=== PATIENT | female | born 1970 | race Caucasian/White ===

== ENCOUNTER 2018-06-06 14:24 | Inpatient (IN) | payer MEDICARE, SELFPAY ==
[2018-06-06] VITALS (104 sets, daily range): BP systolic 67–138; BP diastolic 39–93; PULSE 44–86; RESP 10–20; TEMP 36.6–37.5; O2SAT 89–100
[2018-06-06] MEDS: Normal Saline 1,000 ML 1000 ML IV ×4 (15:00→16:30)
--- NOTE | 2018-06-06 15:01 | W.ED.GENAD ---
Discharge Plan Disposition Patient Disposition: [facility] INPATIENT Condition: Fair Discharge Details Chief Complaint: Nausea/Vomit/Diar Clinical Impression: Vomiting, Dizziness, Dehydration, Anemia, Vasovagal syncope Reason For Visit: ANEMIA,DIZZINESS,DEHYDRATION,VOMITING,LIVER EDEMA Admit Date/Time: 06/06/18 17:28 Admit Provider: Alvin Haro Attending Provider: Alvin Haro Primary Care Provider: Barber Espinal ED Provider: Nahomy Wang Medical Decision Making 48-year-old female with history of chronic pain syndrome, anxiety depression, seizure status post traumatic subdural hematoma who presents for dizziness, vomiting, b/l rib pain and epigastric pain and syncopal episodes over the past 4 days. Admits to similar episodes occurring 3-4 times yearly over the past few years but not as intense or long in duration as current episode. Review of records note that patient saw her PCP 2 days ago and his note stated that she took all of her tramadol and muscle relaxer and 1 dose. He had started her on clonidine and her attempt to get off tramadol and opiate withdrawal. Patient states she has not yet started the clonidine. Patient states she took 3 tramadol and a muscle relaxer at that time. Heart rate 40s-50s. Blood pressure 71/49 on arrival. The bradycardia and hypotension could be explained by clonidine but patient states she is not taking this. Patient states her medications are Lyrica, Zofran, tramadol, zonisamide, Cymbalta and she denies any other new medicines. Patient appears pale and ashen and fatigued. There are no focal deficits. She is complaining mainly of nausea and dizziness at this time. She has chronic bilateral rib and epigastric pain. Review of records from Dr. Espinal in March 2018 patient had c/o b/l rib pain at that time. We will place an IV, bolus IV fluids, labs, urinalysis, UDS, chest x-ray, CT head, CT abdomen and pelvis, dose of compazine and GI cocktail. 151 --blood pressure briefly and improved to 121/54. Blood pressure now again hypotensive at 67/49. Now 70s/40s. Heart rate remains 40s-60s. Review of PCP notes from the past 2 months note that her heart rate was 80s-100s. Systolic blood pressure usually low 100s-120s. 1530 --labs reviewed and note hemoglobin 7.7. Platelet 416. Creatinine 1.29. GFR 44. Lipase negative. HR 50s, BP 72/46. No relief with compazine, Will give dose zofran. 2 units pRBCs ordered. Hospitalist notified of patient and plan for admission. Hospitalist would like to await CT imaging for disposition if patient needs to go to [facility]. 1550 --BP 70s/40s. Patient states her nausea and dizziness is improved. Color improved. Pulses intact. 1650 --heart rate improved to 68, blood pressure 99/63. PRBC transfusion started and patient complained of some itching. Dose of Benadryl IV given. Pt states she feels better. Nausea and dizziness much improved. 1700 --CT head negative. CT chest/abdomen notes mildly enlarged pretracheal lymph nodes, tiny bilateral hilar lymph nodes, periportal edema, low-density wall thickening of the gallbladder but no gallstones. 1720 --d/w hospitalist - accepts pt for admission. Patient states she takes at least 8-10 tabs of Motrin daily for several years for her chronic pain. Patient does admit to previous history of GI ulcers. Rectal exam noted decreased tone, brown stool, and Hemoccult negative. Will give a dose of Protonix IV. Discussed with hospitalist and he will obtain surgical consult for likely endoscopy. Likely her bradycardia and hypotension due to vasovagal reaction due pain, GI illness, etc. Lab Data Lab results reviewed: Yes I reviewed the patient's lab results. ECG Data Attestation: I personally reviewed and interpreted this ECG (s) as follows: Interpretation: Rate of 57, sinus bradycardia, no acute ST elevation or depression, QTC 440, QRS 84. HPI General Mode of arrival: ambulatory. Date/Time Provider Initiated Documentation: 06/06/18 14:25. Limitations to Documentation: no limitations. Information obtained by: patient. HPI Narrative: Patient is a 48-year-old female with a history of chronic pain syndrome, seizure status post subdural hematoma who presents for vomiting, dizziness, rib pain and syncopal episodes of the past 4 days. Patient states she has been vomiting approximately 2-4 times daily which is been vomitus mixed with blood. States she has vomited approximately 1-2 teaspoons of blood mixed with vomitus daily. Patient states her rib pain is bilateral. Patient states she has felt constant dizziness and black spots in her vision, though is worse upon standing. Patient states she has had a few near syncopal and syncopal episodes upon standing over the past 4 days. Patient states she has similar episodes to all of the symptoms occur 3-4 times yearly, but states this episode is more intense and lasting longer patient denies any headache. She does also admit to epigastric abdominal pain. She denies any diarrhea, recent antibiotics, recent travel, urinary symptoms, vaginal bleeding or known fever. Related Data Home Medications Medication Instructions Recorded Confirmed melatonin-pyridoxine HCl (B6) 1 ea PO HS PRN 05/23/14 06/06/18 zonisamide 300 mg PO DAILY tab-cap 12/24/17 06/06/18 albuterol sulfate HFA 90 2 puff IH Q6H PRN 03/17/18 06/06/18 mcg/actuation aerosol inhaler duloxetine 60 mg capsule,delayed 60 mg PO DAILY 03/17/18 06/06/18 release amitriptyline 25 mg tablet 25 mg PO HS #30 tab 03/23/18 06/06/18 linaclotide 145 mcg capsule 145 mcg PO DAILY #90 cap 03/30/18 06/06/18 ondansetron HCl 4 mg tablet 4 mg PO QID PRN #30 tab 05/05/18 06/06/18 pregabalin 150 mg capsule 150 mg PO TID #90 cap 05/20/18 06/06/18 hljlxnotuz-fxqsqrrxwqjch-hrpgsdbp 1 cap PO Q6H PRN #30 cap 06/04/18 06/06/18 50 mg-325 mg-40 mg capsule tramadol 50 mg tablet 50 mg PO Q4H PRN #168 tab MDD 6 06/04/18 06/06/18 tabs Previous Rx's Medication Instructions Recorded amitriptyline 25 mg tablet 25 mg PO HS #30 tab 03/23/18 linaclotide 145 mcg capsule 145 mcg PO DAILY #90 cap 03/30/18 ondansetron HCl 4 mg tablet 4 mg PO QID PRN #30 tab 05/05/18 pregabalin 150 mg capsule 150 mg PO TID #90 cap 05/20/18 cezxhjsdmc-dwbbejjrjoqhx-xqkmunky 1 cap PO Q6H PRN #30 cap 06/04/18 50 mg-325 mg-40 mg capsule tramadol 50 mg tablet 50 mg PO Q4H PRN #168 tab MDD 6 06/04/18 tabs Allergies Allergy/AdvReac Type Severity Reaction Status Date / Time shellfish derived Allergy Unverified 06/06/18 14:36 baclofen AdvReac Intermediate Nausea Unverified 06/06/18 14:36 General Stated Complaint: Nausea/Vomit/Diar MAYRA: 3 Review of Systems Review of Systems All systems reviewed & are unremarkable except as noted in HPI and below Constitutional Denies chills, Denies excessive sweating, Denies fatigue, Denies fever(s), Reports weakness and Denies weight loss Eyes Reports system reviewed and no additional complaints, except as docu and Denies blurry vision ENT Denies vertigo, Reports dizziness, Denies otalgia, Denies nasal congestion, Denies sore throat and Denies throat swelling Cardiovascular Reports chest pain, Reports syncope, Denies rapid heart rate and Denies dyspnea Respiratory Denies dyspnea Gastrointestinal Reports abdominal pain, Denies diarrhea and Reports vomiting Genitourinary Denies hematuria, Denies dysuria and Denies flank pain Musculoskeletal Denies back pain and Denies joint swelling Integumentary/Breasts Denies lesions and Denies rash Neurologic Denies behavioral changes, Denies confusion, Denies vertigo, Reports dizziness, Reports syncope and Reports weakness Psychiatric Denies behavioral changes, Denies confusion and Denies depression Endocrine Denies excessive sweating and Denies fatigue Hematologic/Lymphatic Denies easy bruising and Denies lymphadenopathy Allergic/Immunologic Denies throat swelling PFSH Acne vulgaris Anxiety Cervical disc disorder with myelopathy Chronic pain Constipation Depression Headache Overactive bladder Panic attacks Peripheral neuralgia Seizure Subdural hematoma, post-traumatic Medical History Acne vulgaris Anxiety Cervical disc disorder with myelopathy Chronic pain Constipation Depression Headache Overactive bladder Panic attacks Peripheral neuralgia Seizure Subdural hematoma, post-traumatic Social History Smoking/Tobacco Use Status: Never alcohol intake: never substance use type: does not use and former substance user Date of last use: PREVIOUS HISTORY OF BENZODIAZEPIEN DEPENDANCE.CHRONIC PAIN Social History Smoking/Tobacco Use Status: Never alcohol intake: never substance use type: does not use and former substance user Date of last use: PREVIOUS HISTORY OF BENZODIAZEPIEN DEPENDANCE.CHRONIC PAIN Exam Const General: cooperative and ill appearing Orientation: other (drowsy) [facility] Head: normal to inspection Ears: hearing grossly normal bilaterally, external ears normal and TM's normal bilaterally General nose exam: external nose normal Face and sinus: normal facial exam Mouth: oral mucosae normal Teeth and gingiva: dentition normal Throat: posterior oropharynx normal Eyes General: appearance normal, both eyes and all related structures Eyelids: eyelids normal Pupils: PERRL EOM: EOM intact bilaterally Neck Neck: normal visual inspection Lymphatic: no lymphadenopathy noted Chest Chest: normal inspection of the chest and tenderness (b/l anterior chest wall ) Resp Effort & Inspection: normal respiratory effort and able to speak in complete sentences Auscultation: clear to auscultation bilaterally Cardio Rate: bradycardic Rhythm: regular rhythm GI Inspection: normal to inspection Palpation: soft, not firm, no guarding, no hepatosplenomegaly, no masses and tender in the epigastrum Auscultation: normal bowel sounds Skin General skin exam: other (ashen skin color) Neuro General: alert, awake and oriented x3 Cranial Nerves: CN's II-XI intact bilaterally Cognition: normal cognition Speech: speech normal Gait: normal gait Motor: muscle tone normal throughout and strength 5/5 throughout Sensory Exam: no sensory deficits noted Extrem General: normal to inspection, full ROM and normal capillary refill Psych Appearance: grossly normal Mental Status: mental status grossly normal Speech and Movement: speech and movement normal Affect: other (flat affect) Thought Process: normal Course Laboratory Tests Range/Units 06/06/18 06/06/18 06/06/18 15:10 15:10 15:10 WBC (4.4-10.8) k/cumm 9.70 RBC (4.00-5.20) m/cumm 3.26 L Hgb (12.0-15.5) g/dL 7.7 L Hct (36.0-46.0) % 24.7 L MCV (80-95) fL 75.8 L MCH (27.0-33.0) pg 23.6 L MCHC (32.0-36.0) g/dL 31.2 L RDW (11.7-14.6) % 17.5 H Plt Count (130-400) x1000/uL 416 H MPV (8.0-11.0) fL 10.5 Immature Gran % 0.1 Neutrophils % 73.7 Lymphocytes % 17.8 Monocytes % 6.7 Eosinophils % 1.4 Basophils % 0.3 Absolute Neutrophils (1.2-6.7) k/cumm 7.14 H Absolute Lymphocytes (1.2-3.4) k/cumm 1.73 Absolute Monocytes (0.11-0.7) k/cumm 0.65 Absolute Eosinophils (0.0-0.7) k/cumm 0.14 Absolute Basophils (0.0-0.2) k/cumm 0.03 Retic Count (0.5-2.4) % PT (9.3-10.8) sec INR (1.0-3.5) APTT (21.0-31.4) sec Sodium (136-145) mmol/L 139 Potassium (3.5-5.1) mmol/L 3.5 Chloride (98-107) mmol/L 104 Carbon Dioxide (21.0-32.0) mmol/L 23.7 Anion Gap (3-11) mmol/L 11.3 H BUN (7-18) mg/dL 20 H Creatinine (0.55-1.02) mg/dL 1.29 H Estimated GFR/1.73 m2 (mL/min/1.73m2) 44.11 Glucose (70-100) mg/dL 116 H Calcium (8.5-10.1) mg/dL 8.3 L Magnesium (1.8-2.4) mg/dL 1.7 L Iron (50-175) ug/dL TIBC (250-450) ug/dL Transferrin % Sat (15-50) % Ferritin (8-388) ng/mL Total Bilirubin (0.2-1.0) mg/dL 0.1 L AST (15-37) U/L 10 L ALT (12-78) U/L 13 Alkaline Phosphatase (46-116) U/L 61 Troponin I (0.00-0.06) ng/mL < 0.02 Total Protein (6.4-8.2) g/dL 6.5 Albumin (3.4-5.0) g/dL 2.8 L Lipase (73-393) U/L 128 Serum HCG, Qual Urine Opiates Screen (Negative) Urine Methadone Screen (Negative) Ur Barbiturates Screen (Negative) Ur Tricyclics Screen (Negative) Ur Amphetamines Screen (Negative) U Benzodiazepines Scrn (Negative) Urine Cocaine Screen (Negative) Ur THC Screen (Negative) Patient ABO/Rh O Positive Antibody Screen Negative Crossmatch See Detail Range/Units 06/06/18 06/06/18 06/06/18 15:10 15:10 15:10 WBC (4.4-10.8) k/cumm RBC (4.00-5.20) m/cumm Hgb (12.0-15.5) g/dL Hct (36.0-46.0) % MCV (80-95) fL MCH (27.0-33.0) pg MCHC (32.0-36.0) g/dL RDW (11.7-14.6) % Plt Count (130-400) x1000/uL MPV (8.0-11.0) fL Immature Gran % Neutrophils % Lymphocytes % Monocytes % Eosinophils % Basophils % Absolute Neutrophils (1.2-6.7) k/cumm Absolute Lymphocytes (1.2-3.4) k/cumm Absolute Monocytes (0.11-0.7) k/cumm Absolute Eosinophils (0.0-0.7) k/cumm Absolute Basophils (0.0-0.2) k/cumm Retic Count (0.5-2.4) % PT (9.3-10.8) sec 9.7 INR (1.0-3.5) 1.0 APTT (21.0-31.4) sec 22.2 Sodium (136-145) mmol/L Potassium (3.5-5.1) mmol/L Chloride (98-107) mmol/L Carbon Dioxide (21.0-32.0) mmol/L Anion Gap (3-11) mmol/L BUN (7-18) mg/dL Creatinine (0.55-1.02) mg/dL Estimated GFR/1.73 m2 (mL/min/1.73m2) Glucose (70-100) mg/dL Calcium (8.5-10.1) mg/dL Magnesium (1.8-2.4) mg/dL Iron (50-175) ug/dL 14 L TIBC (250-450) ug/dL 398 Transferrin % Sat (15-50) % 4 L Ferritin (8-388) ng/mL Total Bilirubin (0.2-1.0) mg/dL AST (15-37) U/L ALT (12-78) U/L Alkaline Phosphatase (46-116) U/L Troponin I (0.00-0.06) ng/mL Total Protein (6.4-8.2) g/dL Albumin (3.4-5.0) g/dL Lipase (73-393) U/L Serum HCG, Qual Negative Urine Opiates Screen (Negative) Urine Methadone Screen (Negative) Ur Barbiturates Screen (Negative) Ur Tricyclics Screen (Negative) Ur Amphetamines Screen (Negative) U Benzodiazepines Scrn (Negative) Urine Cocaine Screen (Negative) Ur THC Screen (Negative) Patient ABO/Rh Antibody Screen Crossmatch Range/Units 06/06/18 06/06/18 06/06/18 15:10 15:10 17:50 WBC (4.4-10.8) k/cumm RBC (4.00-5.20) m/cumm Hgb (12.0-15.5) g/dL Hct (36.0-46.0) % MCV (80-95) fL MCH (27.0-33.0) pg MCHC (32.0-36.0) g/dL RDW (11.7-14.6) % Plt Count (130-400) x1000/uL MPV (8.0-11.0) fL Immature Gran % Neutrophils % Lymphocytes % Monocytes % Eosinophils % Basophils % Absolute Neutrophils (1.2-6.7) k/cumm Absolute Lymphocytes (1.2-3.4) k/cumm Absolute Monocytes (0.11-0.7) k/cumm Absolute Eosinophils (0.0-0.7) k/cumm Absolute Basophils (0.0-0.2) k/cumm Retic Count (0.5-2.4) % 1.7 PT (9.3-10.8) sec INR (1.0-3.5) APTT (21.0-31.4) sec Sodium (136-145) mmol/L Potassium (3.5-5.1) mmol/L Chloride (98-107) mmol/L Carbon Dioxide (21.0-32.0) mmol/L Anion Gap (3-11) mmol/L BUN (7-18) mg/dL Creatinine (0.55-1.02) mg/dL Estimated GFR/1.73 m2 (mL/min/1.73m2) Glucose (70-100) mg/dL Calcium (8.5-10.1) mg/dL Magnesium (1.8-2.4) mg/dL Iron (50-175) ug/dL TIBC (250-450) ug/dL Transferrin % Sat (15-50) % Ferritin (8-388) ng/mL 5 L Total Bilirubin (0.2-1.0) mg/dL AST (15-37) U/L ALT (12-78) U/L Alkaline Phosphatase (46-116) U/L Troponin I (0.00-0.06) ng/mL Total Protein (6.4-8.2) g/dL Albumin (3.4-5.0) g/dL Lipase (73-393) U/L Serum HCG, Qual Urine Opiates Screen (Negative) Positive Urine Methadone Screen (Negative) Negative Ur Barbiturates Screen (Negative) Positive Ur Tricyclics Screen (Negative) Negative Ur Amphetamines Screen (Negative) Negative U Benzodiazepines Scrn (Negative) Negative Urine Cocaine Screen (Negative) Negative Ur THC Screen (Negative) Negative Patient ABO/Rh Antibody Screen Crossmatch Range/Units 06/06/18 17:56 WBC (4.4-10.8) k/cumm RBC (4.00-5.20) m/cumm Hgb (12.0-15.5) g/dL Hct (36.0-46.0) % MCV (80-95) fL MCH (27.0-33.0) pg MCHC (32.0-36.0) g/dL RDW (11.7-14.6) % Plt Count (130-400) x1000/uL MPV (8.0-11.0) fL Immature Gran % Neutrophils % Lymphocytes % Monocytes % Eosinophils % Basophils % Absolute Neutrophils (1.2-6.7) k/cumm Absolute Lymphocytes (1.2-3.4) k/cumm Absolute Monocytes (0.11-0.7) k/cumm Absolute Eosinophils (0.0-0.7) k/cumm Absolute Basophils (0.0-0.2) k/cumm Retic Count (0.5-2.4) % PT (9.3-10.8) sec Cancelled INR (1.0-3.5) Cancelled APTT (21.0-31.4) sec Sodium (136-145) mmol/L Potassium (3.5-5.1) mmol/L Chloride (98-107) mmol/L Carbon Dioxide (21.0-32.0) mmol/L Anion Gap (3-11) mmol/L BUN (7-18) mg/dL Creatinine (0.55-1.02) mg/dL Estimated GFR/1.73 m2 (mL/min/1.73m2) Glucose (70-100) mg/dL Calcium (8.5-10.1) mg/dL Magnesium (1.8-2.4) mg/dL Iron (50-175) ug/dL TIBC (250-450) ug/dL Transferrin % Sat (15-50) % Ferritin (8-388) ng/mL Total Bilirubin (0.2-1.0) mg/dL AST (15-37) U/L ALT (12-78) U/L Alkaline Phosphatase (46-116) U/L Troponin I (0.00-0.06) ng/mL Total Protein (6.4-8.2) g/dL Albumin (3.4-5.0) g/dL Lipase (73-393) U/L Serum HCG, Qual Urine Opiates Screen (Negative) Urine Methadone Screen (Negative) Ur Barbiturates Screen (Negative) Ur Tricyclics Screen (Negative) Ur Amphetamines Screen (Negative) U Benzodiazepines Scrn (Negative) Urine Cocaine Screen (Negative) Ur THC Screen (Negative) Patient ABO/Rh Antibody Screen Crossmatch Vital Signs Temperature 97.9 F 06/06/18 14:31 Pulse 49 L 06/06/18 14:31 Respiratory Rate 16 06/06/18 14:31 Blood Pressure 71/46 L 06/06/18 14:31 Pulse Oximetry 100 06/06/18 14:31 Temperature 97.9 F 06/06/18 14:31 Temperature Source Skin 06/06/18 14:31 Pulse 49 L 06/06/18 14:31 Respiratory Rate 16 06/06/18 14:31 Blood Pressure 71/46 L 06/06/18 14:31 Pulse Oximetry 100 06/06/18 14:31 Pain Level 8 06/06/18 14:31
[2018-06-06] MEDS: Prochlorperazine 10 MG/2 ML VIAL IVP (15:06)
[2018-06-06 15:24] LABS: Abs Immature Grans 0.01 k/cumm (0.0-0.09); Absolute Basophil Count 0.03 k/cumm (0.0-0.2); Absolute Eosinophil Count 0.14 k/cumm (0.0-0.7); Absolute Lymphocyte Count 1.73 k/cumm (1.2-3.4); Absolute Monocyte Count 0.65 k/cumm (0.11-0.7); Absolute Neutrophil Count 7.14 k/cumm (1.2-6.7); Basophils % 0.3; Eosinophils % 1.4; HCT 24.7 % (36.0-46.0); HGB 7.7 g/dL (12.0-15.5); Immature Grans % 0.1; Lymphocytes % 17.8; Mean Corp. HGB Concentration 31.2 g/dL (32.0-36.0); Mean Corpuscular Hemoglobin 23.6 pg (27.0-33.0); Mean Corpuscular Volume 75.8 fL (80-95); Mean Platelet Volume 10.5 fL (8.0-11.0); Monocytes % 6.7; Neutrophils % 73.7; Platelet Count 416 x1000/uL (130-400); RBC 3.26 m/cumm (4.00-5.20); RBC Distribution Width 17.5 % (11.7-14.6)
--- NOTE | 2018-06-06 15:33 | DI.RAD_ITS ---
SYMPTOMS/DIAGNOSIS: RIB PAIN, ? ACUTE DISEASE PORTABLE AP CHEST: Comparison 03/12/13. The heart is normal in size. The lungs are clear. The mediastinal structures and pleura appear intact. CONCLUSION: Normal chest.
--- NOTE | 2018-06-06 15:34 | DI.CT_ITS ---
SYMPTOMS/DIAGNOSIS: HEADACHE, ? ACUTE DISEASE/CVA, RIB AND EPIGASTRIC PAIN, ? ACUTE DISEASE CRANIAL CT (WITHOUT CONTRAST): A noncontrast cranial CT was performed. Comparison 05/30/17. The ventricular system is normal in appearance. There is no evidence of an intracranial mass lesion. There is no evidence of a subdural or epidural hematoma. No focal areas of decreased attenuation are seen. IMPRESSION: Normal noncontrast Cranial CT. CT SCAN OF THE ABDOMEN AND PELVIS: There is diffuse heterogeneous decreased signal in the liver, particularly around the gallbladder fossa. No discrete mass is appreciated. There is diffuse periportal edema. The portal and superior mesenteric veins are patent. The gallbladder shows gallbladder wall thickening and pericholecystic fluid. No biliary ductal dilatation is present. The pancreas, spleen, adrenal glands, kidneys, ureters and bladder are unremarkable. The reproductive organs are grossly unremarkable. There is diverticulosis seen in the colon but no evidence of acute diverticulitis. No evidence of bowel inflammatory or obstruction. The appendix is grossly unremarkable. The abdominal aorta is of normal caliber. No aneurysmal dilatation is seen. No significant abdominal or pelvic adenopathy or pneumoperitoneum is seen. There is a trace amount of fluid in the cul-de-sac which is likely physiologic. The bones are intact. Note is made of a 1.4 cm left adnexal cyst likely ovarian in origin. IMPRESSION: 1. Periportal hepatic edema. 2. Decreased attenuation in the gallbladder wall with gallbladder wall thickening and pericholecystic fluid. No cholelithiasis is seen. Sonographic correlation is recommended. This may represent cholecystitis, however, disease from the adjacent liver can not be excluded. 3. Colonic diverticulosis but no evidence of acute diverticulitis. CT SCAN OF THE CHEST: The thoracic aorta is of normal caliber. The heart size is within normal limits. No significant pericardial effusion is seen. No pleural effusion or pneumothorax is identified. There are mildly enlarged lymph nodes in the mediastinum. The thyroid is mildly enlarged and heterogeneous with what appear to be small discrete nodules. Thyroid ultrasound is recommended. Dependent atelectatic changes are seen in the lungs which are otherwise clear. The tracheobronchial tree is unremarkable. The bones are intact. IMPRESSION: Mildly enlarged mediastinal lymph nodes. These are nonspecific.
[2018-06-06 15:36] LABS: ALT 13 U/L (12-78); AST 10 U/L (15-37); Albumin 2.8 g/dL (3.4-5.0); Alkaline Phosphatase 61 U/L (46-116); Anion Gap 11.3 mmol/L (3-11); BUN 20 mg/dL (7-18); Bilirubin, Total 0.1 mg/dL (0.2-1.0); CO2 23.7 mmol/L (21.0-32.0); CREATININE 1.29 mg/dL (0.55-1.02); Calcium 8.3 mg/dL (8.5-10.1); Chloride 104 mmol/L (98-107); Estimated GFR 44.11 (mL/min/1.73m2); Glucose 116 mg/dL (70-100); Lipase 128 U/L (73-393); Magnesium 1.7 mg/dL (1.8-2.4); Potassium 3.5 mmol/L (3.5-5.1); Sodium 139 mmol/L (136-145); Total Protein 6.5 g/dL (6.4-8.2); Troponin I < 0.02 ng/mL (0.00-0.06)
[2018-06-06] MEDS: Ondansetron 4 MG/2 ML VIAL IVP (15:37)
--- NOTE | 2018-06-06 16:04 | NUR.NOTE ---
Third L IVF infusing as ordered, pt. remains alert, remains hypotensive and bradycardic. Radial and DP pulses are palpable b/laterally, skin is warm and dry. states nausea is improved after ondansetron.
--- NOTE | 2018-06-06 16:06 | DI.VRAD_ITS ---
EXAM: XR Chest, 1 View EXAM DATE/TIME: 06/06/2018 3:42 PM CLINICAL HISTORY: 48 years old, female; Pain; Chest wall pain; Patient HX: Rib pain TECHNIQUE: XR of the chest, 1 view. COMPARISON: CR PORTABLE CHEST ONE VIEW 03/12/2013 8:01 PM FINDINGS: The cardiomediastinal silhouette and pulmonary vasculature are within normal limits. The lungs are clear. No pleural effusion or pneumothorax is identified. IMPRESSION: No acute process. Dictated and Authenticated by: Ron Jaramillo MD. Ordering:KEESHA TORRES MD
[2018-06-06 16:36] LABS: HCG Qual (Serum) Negative
[2018-06-06] MEDS: Omnipaque 350 MG/ML 100 ML BTL IJ (16:36)
--- NOTE | 2018-06-06 16:43 | DI.VRAD_ITS ---
EXAM: CT Head Without Intravenous Contrast EXAM DATE/TIME: 06/06/2018 3:34 PM CLINICAL HISTORY: 48 years old, female; Pain; Headache; Headache not specified; Patient HX: Rule out acute disease TECHNIQUE: Axial computed tomography images of the head/brain without intravenous contrast. All CT scans at this facility use at least one of these dose optimization techniques: automated exposure control; mA and/or kV adjustment per patient size (includes targeted exams where dose is matched to clinical indication); or iterative reconstruction. Coronal and sagittal reformatted images were created and reviewed. COMPARISON: CT HEAD WITHOUT CONTRAST 05/30/2017 1:57 PM FINDINGS: Brain: Unremarkable. No hemorrhage. No significant white matter disease. No edema. Ventricles: Unremarkable. No ventriculomegaly. Bones/joints: Unremarkable. No acute fracture. Sinuses: Normal as visualized. No acute sinusitis. Mastoid air cells: Normal as visualized. No mastoid effusion. Soft tissues: Unremarkable. IMPRESSION: No acute intracranial abnormality. Dictated and Authenticated by: Ron Jaramillo MD. Ordering:KEESHA TORRES MD
[2018-06-06] MEDS: MORPHine 10 MG/ML VIAL 2 MG IV (16:54)
--- NOTE | 2018-06-06 16:55 | DI.VRAD_ITS ---
EXAM: CT Chest With Contrast EXAM DATE/TIME: 06/06/2018 3:50 PM CLINICAL HISTORY: 48 years old, female; Pain; Other: Epigastric; Other: Rib TECHNIQUE: Axial computed tomography images of the chest with intravenous contrast. All CT scans at this facility use at least one of these dose optimization techniques: automated exposure control; mA and/or kV adjustment per patient size (includes targeted exams where dose is matched to clinical indication); or iterative reconstruction. Coronal and sagittal reformatted images were created and reviewed. CONTRAST: 90 ml of Omnipaque 350 administered intravenously. COMPARISON: SC XR PORTABLE CHEST AP 06/06/2018 3:39 PM FINDINGS: Lungs: Minimal dependent changes within the lung bases. No pulmonary consolidation. Pleural space: Normal. No pneumothorax. No pleural effusion. Heart: Normal. No cardiomegaly. No pericardial effusion. Aorta: Normal. No aortic aneurysm. Lymph nodes: Mildly enlarged pretracheal lymph nodes measuring up to 10 mm in short axis diameter. Tiny bilateral hilar lymph nodes. Bones/joints: Unremarkable. No acute fracture. Soft tissues: Unremarkable. IMPRESSION: Mild mediastinal lymphadenopathy, nonspecific. EXAM: CT Abdomen and Pelvis With Intravenous Contrast EXAM DATE/TIME: 06/06/2018 3:50 PM CLINICAL HISTORY: 48 years old, female; Pain; Other: Epigastric; Other: Rib TECHNIQUE: Axial computed tomography images of the abdomen and pelvis with intravenous contrast. All CT scans at this facility use at least one of these dose optimization techniques: automated exposure control; mA and/or kV adjustment per patient size (includes targeted exams where dose is matched to clinical indication); or iterative reconstruction. Coronal and sagittal reformatted images were created and reviewed. CONTRAST: 90 ml of Omnipaque 350 administered intravenously. COMPARISON: SC XR PORTABLE CHEST AP 06/06/2018 3:39 PM FINDINGS: Lower thorax: No acute findings. ABDOMEN: Liver: Diffuse periportal edema. Decreased attenuation within the liver adjacent to the gallbladder fossa, likely focal fatty infiltration. Gallbladder and bile ducts: Low-density wall thickening of the gallbladder. No calcified gallstones. No duct dilatation. Pancreas: Unremarkable. No ductal dilation. Spleen: Unremarkable. No splenomegaly. Adrenals: Normal. No mass. Kidneys and ureters: Unremarkable. No stones. No hydronephrosis. Stomach and bowel: Mild colonic diverticulosis. No diverticulitis. No colitis or obstruction. Appendix: No evidence of appendicitis. PELVIS: Bladder: Unremarkable as visualized. Reproductive: Left ovarian cyst measuring 14 mm. unremarkable right adnexa and uterus. ABDOMEN and PELVIS: Intraperitoneal space: Trace fluid within the posterior cul-de-sac. No free air. Bones/joints: No acute fracture. Soft tissues: Unremarkable. Vasculature: Unremarkable. No abdominal aortic aneurysm. Lymph nodes: Unremarkable. No enlarged lymph nodes. IMPRESSION: 1. Periportal edema. 2. Low-density wall thickening of the gallbladder. These changes may be secondary to primary gallbladder disease as well as associated with hepatic disease. No calcified stones are identified. Consider right upper quadrant ultrasound as clinically indicated. 3. Colonic diverticulosis. 4. Small left ovarian cyst. Trace fluid in the posterior cul-de-sac. Dictated and Authenticated by: Ron Jaramillo MD. Ordering:KEESHA TORRES MD
[2018-06-06] MEDS: diphenhydrAMINE 50 MG/ML VIAL 25 MG IVP ×2 (17:03→20:17)
--- NOTE | 2018-06-06 17:04 | NUR.NOTE ---
This RN at the bedside for first 20 minutes of transfusion, started at 30ml/hour. Pt. did endorse mild itchiness to left arm, benadryl administered as ordered. s/s improved. rate increased to 240ml/hour. Pt. aware of s/s of reaction to communicated with staff.
--- NOTE | 2018-06-06 17:06 | NUR.NOTE ---
MD Wang at the bedside assessing patient.
[2018-06-06 17:27] LABS: PTT Activated 22.2 sec (21.0-31.4); Prothrombin Time 9.7 sec (9.3-10.8)
[2018-06-06] MEDS: Pantoprazole 40 MG VIAL IVP ×2 (17:59→22:51)
[2018-06-06 18:01] LABS: Reticulocyte 1.7 % (0.5-2.4)
[2018-06-06 18:09] LABS: *AMPHETAMINES SCREEN URINE Negative (Negative); *BARBITURATES SCREEN URINE POSITIVE (Negative); *BENZODIAZEPINES SCREEN URINE Negative (Negative); Cannabinoids THC Negative (Negative); Cocaine Screen,Urine Negative (Negative); METHADONE URINE SCREEN Negative (Negative); OPIATES URINE SCREEN POSITIVE (Negative)
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
[2018-06-06 18:14] LABS: Tricyclic Antidepressants Negative (Negative)
[2018-06-06 18:17] LABS: Iron 14 ug/dL (50-175); Total Iron Binding Capacity 398 ug/dL (250-450); Transferrin Sat 4 % (15-50)
--- NOTE | 2018-06-06 18:17 | NUR.NOTE ---
Report given to KAMILLE Riggs in ICU. Pt. stood to void in commode, stood, steady, in no distress. Does persist to leyla down to low 40s, mostly is in low 60s.
[2018-06-06 18:33] LABS: Ferritin 5 ng/mL (8-388)
--- NOTE | 2018-06-06 19:06 | NUR.NOTE ---
Blood Transusion completed at 1820, pt. tolerated well. Report given to KAMILLE Riggs in the ICU. Pt. transported on monitor by this RN.
[2018-06-06] MEDS: Ondansetron 4 MG TAB PO ×2 (19:18→23:20)
[2018-06-06] MEDS: Pregabalin 50 MG CAP 150 MG PO (20:18)
[2018-06-06] MEDS: Normal Saline Flush 10 ML SYR IVP (20:18)
[2018-06-06 20:43] LABS: Troponin I < 0.02 ng/mL (0.00-0.06)
[2018-06-06] MEDS: Normal Saline 1,000 ML 150 ML IV (21:42)
[2018-06-07] VITALS (66 sets, daily range): BP systolic 84–154; BP diastolic 56–80; PULSE 63–106; RESP 12–24; TEMP 36–37.7; O2SAT 96–100
[2018-06-07 00:50] LABS: Troponin I < 0.02 ng/mL (0.00-0.06)
[2018-06-07] MEDS: Ondansetron 4 MG TAB PO ×4 (03:35→19:11)
[2018-06-07] MEDS: Normal Saline Flush 10 ML SYR IVP ×4 (03:35→12:42)
[2018-06-07 04:19] LABS: HCT 30.3 % (36.0-46.0); Mean Corpuscular Hemoglobin 25.4 pg (27.0-33.0); Mean Corpuscular Volume 77.1 fL (80-95); Mean Platelet Volume 10.9 fL (8.0-11.0); Platelet Count 374 x1000/uL (130-400); RBC 3.93 m/cumm (4.00-5.20); RBC Distribution Width 17.7 % (11.7-14.6); White Blood Cell Count 9.31 k/cumm (4.4-10.8)
[2018-06-07 04:34] LABS: ALT 42 U/L (12-78); AST 40 U/L (15-37); Albumin 2.7 g/dL (3.4-5.0); Alkaline Phosphatase 122 U/L (46-116); Anion Gap 13.3 mmol/L (3-11); BUN 13 mg/dL (7-18); Bilirubin, Total 0.2 mg/dL (0.2-1.0); CO2 19.7 mmol/L (21.0-32.0); CREATININE 0.97 mg/dL (0.55-1.02); Calcium 7.5 mg/dL (8.5-10.1); Chloride 110 mmol/L (98-107); Glucose 86 mg/dL (70-100); Magnesium 1.6 mg/dL (1.8-2.4); Potassium 3.1 mmol/L (3.5-5.1); Sodium 143 mmol/L (136-145); Total Protein 6.2 g/dL (6.4-8.2)
[2018-06-07] MEDS: Normal Saline 1,000 ML 150 ML IV (04:36)
[2018-06-07 04:40] LABS: Troponin I < 0.02 ng/mL (0.00-0.06)
[2018-06-07] MEDS: MAGNESIUM SULFATE 1 GM/100 ML BAG IVPB (06:20)
--- NOTE | 2018-06-07 07:00 | DI.US_ITS ---
SYMPTOM/DIAGNOSIS: PERIPORTAL EDEMA, NAUSEA, VOMITING, EPIGASTRIC PAIN LIMITED ABDOMEN ULTRASOUND: The liver is normal in size. No hepatic mass is seen. Portal venous flow is normal. There is a trace amount of fluid seen adjacent to the liver and gallbladder. No gallstones are present. Gallbladder wall is of normal thickness. No sludge is seen. The common duct in the mid portion is .8 cm. Distally in the head of the pancreas the common duct is within normal limits at .4 cm. No intraductal stone is seen. IMPRESSION: 1, Small amount of perihepatic and pericholecystic fluid, otherwise no evidence of cholelithiasis or choledocholithiasis sonographically.
[2018-06-07] MEDS: POTASSIUM CHLORIDE 10 MEQ/100 ML BAG 100 MEQ IVPB (07:34)
--- NOTE | 2018-06-07 07:38 | PDOC.CMIN ---
- If Service Date Differs Date of service: 06/07/18 Time of Service: 07:38 Care Management Initial Assess REASON FOR HOSPITALIZATION:: Anemia, dizziness, dehydration, vomiting, liver edema. PAST MEDICAL HISTORY/PAST SURGICAL HISTORY:: Acne vulgaris, anxiety, cervical disc disorder with myelopathy, depression, overactive bladder, peripheral neuralgia, panic attacks, seizures, subdural hematoma, post-traumatic. PREVIOUS FUNCTIONAL STATUS/SOCIAL/FAMILY SUPPORTS:: Symone resides in [place] with her partner, Aaron. She has several adult children and step children and has two foster children. 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 Symone is independent with her ADLs and transportation and reports that she has no reservations about returning home when medically ready. CURRENT FUNCTIONAL STATUS:: Symone is sitting in bed when CM visits this afternoon. This morning when CM stopped in, Symone was in 'uncontrollable pain' which she reports is much improved since then. Symone had an abdominal ultrasound this morning and has had a consult with Dr. Cortes regarding a possible endoscopy. Symone has an appointment with Dr. Carvalho on 06/08 which she will need to reschedule if she remains inpatient. Her H&H is improved though remains low following two infusions; 10.0 and 30.3. Symone reports that she is feeling much better than she did this morning when CM first visited. She reports that she is 'bummed' that she is not home with her foster children. ADVANCE DIRECTIVES:: None on file at [facility]. They are on file at [facility]. Per patient request, CM will request a copy be faxed to [facility]. Has patient been provided with information about the portal?: Yes Did the patient sign up for the portal?: No CODE STATUS:: Full Code INSURANCE COVERAGE / FINANCIAL ISSUES:: Medicare. CURRENT HOME/COMMUNITY SERVICES/EQUIPMENT:: No current home or community services. No equipment. PRIMARY CARE PHYSICIAN:: Barber Espinal MD. POTENTIAL DISCHARGE NEEDS:: Follow up appointment with her PCP. PATIENT/FAMILY EDUCATION NEEDS:: Discharge education, any limitations, and follow up plan of care. Ask Me Three discussion. ANTICIPATED BARRIERS TO DISCHARGE:: No anticipated barriers to discharge. TRANSPORTATION:: Symone will transport via private vehicle with her , Aaron. PLAN:: Symone will discharge home when medically ready per MD. Anticipate patient will discharge with no services and follow up with her PCP. CM will continue to offer support to patient and care team regarding discharge planning and disposition.
--- NOTE | 2018-06-07 07:48 | INITIAL_ITS ---
- If Service Date Differs Date of service: 06/07/18 Time of Service: 07:38 Care Management Initial Assess REASON FOR HOSPITALIZATION:: Anemia, dizziness, dehydration, vomiting, liver edema. PAST MEDICAL HISTORY/PAST SURGICAL HISTORY:: Acne vulgaris, anxiety, cervical disc disorder with myelopathy, depression, overactive bladder, peripheral neuralgia, panic attacks, seizures, subdural hematoma, post-traumatic. PREVIOUS FUNCTIONAL STATUS/SOCIAL/FAMILY SUPPORTS:: Symone resides in [place] with her partner, Aaron. She has several adult children and step children and has two foster children. 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 Symone is independent with her ADLs and transportation and reports that she has no reservations about returning home when medically ready. CURRENT FUNCTIONAL STATUS:: Symone is sitting in bed when CM visits this afternoon. This morning when CM stopped in, Symone was in 'uncontrollable pain' which she reports is much improved since then. Symone had an abdominal ultrasound this morning and has had a consult with Dr. Cortes regarding a possible endoscopy. Symone has an appointment with Dr. Carvalho on 06/08 which she will need to reschedule if she remains inpatient. Her H&H is improved though remains low following two infusions; 10.0 and 30.3. Symone reports that she is feeling much better than she did this morning when CM first visited. She reports that she is 'bummed' that she is not home with her foster children. ADVANCE DIRECTIVES:: None on file at [facility]. They are on file at [facility]. Per patient request, CM will request a copy be faxed to [facility]. Has patient been provided with information about the portal?: Yes Did the patient sign up for the portal?: No CODE STATUS:: Full Code INSURANCE COVERAGE / FINANCIAL ISSUES:: Medicare. CURRENT HOME/COMMUNITY SERVICES/EQUIPMENT:: No current home or community services. No equipment. PRIMARY CARE PHYSICIAN:: Barber Espinal MD. POTENTIAL DISCHARGE NEEDS:: Follow up appointment with her PCP. PATIENT/FAMILY EDUCATION NEEDS:: Discharge education, any limitations, and follow up plan of care. Ask Me Three discussion. ANTICIPATED BARRIERS TO DISCHARGE:: No anticipated barriers to discharge. TRANSPORTATION:: Symone will transport via private vehicle with her , Aaron. PLAN:: Symone will discharge home when medically ready per MD. Anticipate patient will discharge with no services and follow up with her PCP. CM will continue to offer support to patient and care team regarding discharge planning and disposition.
[2018-06-07] MEDS: Pregabalin 50 MG CAP 150 MG PO ×3 (08:55→19:07)
[2018-06-07] MEDS: Zonisamide 100 MG CAP 300 MG PO (08:55)
[2018-06-07] MEDS: DULoxetine 30 MG CAP 60 MG PO (08:55)
[2018-06-07] MEDS: traMADol 50 MG TAB PO ×3 (08:58→19:48)
--- NOTE | 2018-06-07 09:00 | RESPIRATORY ---
Patient denies SOB, breath sounds clear with a few scattered crackles LLL.
[2018-06-07] MEDS: Acetaminophen 325 MG TAB PO (09:07)
--- NOTE | 2018-06-07 09:14 | PHARADMIT ---
Addendum entered by Justen Salas III 06/08/18 12:20: Pharmacy Note Subjective GI Bleed resolved (ADR from Ibuprofen over use, Advil 10-15/day). Nausea & Vomiting resolved. Had psych consult. Objective VS-OK Pain: 01/12, H&H-10.8/33.7 (post transfusion), Wgt-57.2kg No BM yet. Assessment No med changes Plan Changed to Med/Surg overflow, Plan for discharge tomorrow. Original Note: Admission Pharmacy Clinical Review anemia, dizziness, dehydration, vomiting, liver edema Code Status Full Code Current Weight 56.3 kg Renally Cleared and Narrow Therapeutic Index Meds Crcl ~56.00 mL/min current meds okay QTc Value / Action Taken QTc 440 BP Control, Fever BP 130/75 Tmax 37.7 Electrolytes reviewed K+ 3.1 Cl 110 mag 1.6 DVT Prophylaxis none Opiate Usage / Scheduled Bowel Regimen Ordered prn/prn Plt/SCr for Heparin / Enoxaparin plt 374 SCr 0.97 INR for Warfarin n/a H/H stable, WBC/Bands h/h 10.0/30.3 wbc 9.31 Antibiotic appropriateness none Cultures and Sensitivities none Surgical ABX d/c within 24 hr n/a DM control / Insulin Dosing BG 86 n/a Heart Failure (Check EF%) (VENKAT's, B-Block, Diuretics) none IV to PO Switch n/a Home Meds Reviewed -multiple CHARGER depressants-tramadol, amitriptyline, butalbital, clonidine, pregabalin, zonisamide -butalbital may decrease the therapeutic effects of amitriptyline -amitriptyline may diminish the antihypertensive effect of clonidine Home Meds Not Ordered amitriptyline, butalbital/apap/caffeine, clonidine, linaclotide, melatonin/pyridoxine Comments protonix drip started this morning potassium and magnesium replacement given
[2018-06-07] MEDS: Pantoprazole 40 MG VIAL 80 MG IVP (09:57)
[2018-06-07] MEDS: PANTOPRAZOLE 80 MG in Normal Saline 100 ML 10 MG IV (10:13)
[2018-06-07] MEDS: Metoclopramide 10 MG/2 ML VIAL IVP ×2 (12:35→19:54)
--- NOTE | 2018-06-07 12:57 | PGE_ITS ---
Date of Service Date of service: 06/07/18 Time of Service: 12:52 Assessment and Plan (1) Upper GI bleeding: Current visit: Yes Status: Acute in setting of taking a large amount of NSAIDS at home. PPI was upgraded to protonix bolus and drip. I am attempting to get in touch with Dr Cortes to discuss the case. (2) Epigastric abdominal pain: Current visit: Yes Status: Acute Ultrasound unremarkable for cholecystitis. Ddx includes gastritis, ulcer , esophagitis. On PPI. Continue prn morphine. (3) Symptomatic anemia: Current visit: Yes Status: Acute s/p transfusion of 2 units pRBC's with expected improvement in H/H. Will continue to monitor H/H's Q8 hrs. (4) Vasovagal syncope: Current visit: Yes Status: Acute In setting of nausea and acute anemia, I do not feel this warrants further work up. Rather, we will focus on ensuring her hemoglobin states stable and that she is appropriately hydrated and not nauseated. (5) Anemia due to acute blood loss: Current visit: Yes Status: Acute As above (6) Chronic pain syndrome: Current visit: No Status: Chronic At this time, with an acute on chronic component. Continue prn Morphine for situations when ultram is not enough. (7) Seizure disorder: Current visit: Yes Status: Chronic continue outpatient therapy. (8) DVT prophylaxis: Current visit: Yes Status: Acute SCD's alone (9) Discharge planning issues: Current visit: Yes Status: Acute Full code Will continue to monitor in the ICU. Subjective Interval history since last seen: Ms Alamo continues to have severe epigastric pain and continues to have emesis - though now, it's no longer bloody. She denies dizziness, chest pain, or shortness of breath. Her states that at home she was taking more than 20 OTC ibuprofen daily in the last few days. Exam Narrative Exam Narrative: General: A&Ox3, visibly nauseated, looks sick HEENT: EOMI, dry MM Heart: RRR, tachycardic Lungs: CTAB Abdomen: soft, tender in epigastrium Extremities: no edema, clubbing, or cyanosis of BLE's Objective Objective Clinical Data: Abnormal lab results 06/06/18 06/06/18 06/06/18 Range/Units 15:10 15:10 15:10 RBC 3.26 L (4.00-5.20) m/cumm Hgb 7.7 L (12.0-15.5) g/dL Hct 24.7 L (36.0-46.0) % MCV 75.8 L (80-95) fL MCH 23.6 L (27.0-33.0) pg MCHC 31.2 L (32.0-36.0) g/dL RDW 17.5 H (11.7-14.6) % Plt Count 416 H (130-400) x1000/uL Absolute Neutrophils 7.14 H (1.2-6.7) k/cumm Potassium (3.5-5.1) mmol/L Chloride (98-107) mmol/L Carbon Dioxide (21.0-32.0) mmol/L Anion Gap 11.3 H (3-11) mmol/L BUN 20 H (7-18) mg/dL Creatinine 1.29 H (0.55-1.02) mg/dL Glucose 116 H (70-100) mg/dL Calcium 8.3 L (8.5-10.1) mg/dL Magnesium 1.7 L (1.8-2.4) mg/dL Iron (50-175) ug/dL Transferrin % Sat (15-50) % Ferritin (8-388) ng/mL Total Bilirubin 0.1 L (0.2-1.0) mg/dL AST 10 L (15-37) U/L Alkaline Phosphatase (46-116) U/L Total Protein (6.4-8.2) g/dL Albumin 2.8 L (3.4-5.0) g/dL Crossmatch See Detail 06/06/18 06/06/18 06/07/18 Range/Units 15:10 15:10 04:10 RBC (4.00-5.20) m/cumm Hgb (12.0-15.5) g/dL Hct (36.0-46.0) % MCV (80-95) fL MCH (27.0-33.0) pg MCHC (32.0-36.0) g/dL RDW (11.7-14.6) % Plt Count (130-400) x1000/uL Absolute Neutrophils (1.2-6.7) k/cumm Potassium 3.1 L (3.5-5.1) mmol/L Chloride 110 H (98-107) mmol/L Carbon Dioxide 19.7 L (21.0-32.0) mmol/L Anion Gap 13.3 H (3-11) mmol/L BUN (7-18) mg/dL Creatinine (0.55-1.02) mg/dL Glucose (70-100) mg/dL Calcium 7.5 L (8.5-10.1) mg/dL Magnesium 1.6 L (1.8-2.4) mg/dL Iron 14 L (50-175) ug/dL Transferrin % Sat 4 L (15-50) % Ferritin 5 L (8-388) ng/mL Total Bilirubin (0.2-1.0) mg/dL AST 40 H (15-37) U/L Alkaline Phosphatase 122 H (46-116) U/L Total Protein 6.2 L (6.4-8.2) g/dL Albumin 2.7 L (3.4-5.0) g/dL Crossmatch 06/07/18 Range/Units 04:10 RBC 3.93 L (4.00-5.20) m/cumm Hgb 10.0 L D (12.0-15.5) g/dL Hct 30.3 L D (36.0-46.0) % MCV 77.1 L (80-95) fL MCH 25.4 L (27.0-33.0) pg MCHC (32.0-36.0) g/dL RDW 17.7 H (11.7-14.6) % Plt Count (130-400) x1000/uL Absolute Neutrophils (1.2-6.7) k/cumm Potassium (3.5-5.1) mmol/L Chloride (98-107) mmol/L Carbon Dioxide (21.0-32.0) mmol/L Anion Gap (3-11) mmol/L BUN (7-18) mg/dL Creatinine (0.55-1.02) mg/dL Glucose (70-100) mg/dL Calcium (8.5-10.1) mg/dL Magnesium (1.8-2.4) mg/dL Iron (50-175) ug/dL Transferrin % Sat (15-50) % Ferritin (8-388) ng/mL Total Bilirubin (0.2-1.0) mg/dL AST (15-37) U/L Alkaline Phosphatase (46-116) U/L Total Protein (6.4-8.2) g/dL Albumin (3.4-5.0) g/dL Crossmatch Vital Signs Temperature 37.7 C H 06/07/18 08:11 Temperature Source Temporal Artery Scan 06/07/18 08:11 Pulse 78 06/07/18 10:00 Pulse 78 06/07/18 10:00 Respiratory Rate 15 06/07/18 10:00 Respiratory Effort 06/07/18 08:11 Respiratory Depth Normal 06/07/18 08:11 Respiratory Pattern Normal 06/07/18 08:11 Blood Pressure 137/74 06/07/18 10:00 Blood Pressure Mean 90 06/07/18 10:00 Blood Pressure Position Supine 06/07/18 08:11 Pulse Oximetry 97 06/07/18 10:00 Oxygen Delivery Method Room Air 06/07/18 08:11 Oxygen Flow Rate 0 06/07/18 08:11 Pain Level 7 06/07/18 12:33 Intake & Output 06/06/18 06/07/18 06/07/18 23:59 11:59 23:59 Intake Total 4822 / 4822 1250 / 1250 Output Total 450 / 450 1870 / 1870 Balance 4372 / 4372 -620 / -620 Weight 52.163 kg 56.3 kg Intake: IV 4000 / 4000 1220 / 1220 Oral 60 / 60 30 / 30 Blood Product 662 / 662 Rbc Leuko Reduced Unit 282 / 282 [id number] Rbc Leuko Reduced Unit 380 / 380 [id number]* Other 100 / 100 Rbc Leuko Reduced Unit 100 / 100 [id number]* Output: Urine 450 / 450 1850 / 1850 Emesis 20 / 20 Other: Urine Color Yellow Pale Urine Appearance Clear Cloudy Urine Odor Normal Normal Emesis Description Blood Tinged Clear/Water Bright Red Blood Gastric Occult Blood Negative Voiding Methods Bedside Commode Bedside Commode Laboratory Results WBC 9.31 k/cumm (4.4-10.8) 06/07/18 04:10 RBC 3.93 m/cumm (4.00-5.20) L 06/07/18 04:10 Hgb 10.0 g/dL (12.0-15.5) L D 06/07/18 04:10 Hct 30.3 % (36.0-46.0) L D 06/07/18 04:10 MCV 77.1 fL (80-95) L 06/07/18 04:10 MCH 25.4 pg (27.0-33.0) L 06/07/18 04:10 MCHC 33.0 g/dL (32.0-36.0) 06/07/18 04:10 RDW 17.7 % (11.7-14.6) H 06/07/18 04:10 Plt Count 374 x1000/uL (130-400) 06/07/18 04:10 MPV 10.9 fL (8.0-11.0) 06/07/18 04:10 Immature Gran % 0.1 06/06/18 15:10 Neutrophils % 73.7 06/06/18 15:10 Lymphocytes % 17.8 06/06/18 15:10 Monocytes % 6.7 06/06/18 15:10 Eosinophils % 1.4 06/06/18 15:10 Basophils % 0.3 06/06/18 15:10 Absolute Neutrophils 7.14 k/cumm (1.2-6.7) H 06/06/18 15:10 Absolute Lymphocytes 1.73 k/cumm (1.2-3.4) 06/06/18 15:10 Absolute Monocytes 0.65 k/cumm (0.11-0.7) 06/06/18 15:10 Absolute Eosinophils 0.14 k/cumm (0.0-0.7) 06/06/18 15:10 Absolute Basophils 0.03 k/cumm (0.0-0.2) 06/06/18 15:10 Retic Count 1.7 % (0.5-2.4) 06/06/18 15:10 PT 9.7 sec (9.3-10.8) 06/06/18 15:10 INR 1.0 (1.0-3.5) 06/06/18 15:10 APTT 22.2 sec (21.0-31.4) 06/06/18 15:10 Sodium 143 mmol/L (136-145) 06/07/18 04:10 Potassium 3.1 mmol/L (3.5-5.1) L 06/07/18 04:10 Chloride 110 mmol/L (98-107) H 06/07/18 04:10 Carbon Dioxide 19.7 mmol/L (21.0-32.0) L 06/07/18 04:10 Anion Gap 13.3 mmol/L (3-11) H 06/07/18 04:10 BUN 13 mg/dL (7-18) D 06/07/18 04:10 Creatinine 0.97 mg/dL (0.55-1.02) 06/07/18 04:10 Estimated GFR/1.73 m2 >= 60.00 (mL/min/1.73m2) 06/07/18 04:10 Glucose 86 mg/dL (70-100) 06/07/18 04:10 Calcium 7.5 mg/dL (8.5-10.1) L 06/07/18 04:10 Magnesium 1.6 mg/dL (1.8-2.4) L 06/07/18 04:10 Iron 14 ug/dL (50-175) L 06/06/18 15:10 TIBC 398 ug/dL (250-450) 06/06/18 15:10 Transferrin % Sat 4 % (15-50) L 06/06/18 15:10 Ferritin 5 ng/mL (8-388) L 06/06/18 15:10 Total Bilirubin 0.2 mg/dL (0.2-1.0) 06/07/18 04:10 AST 40 U/L (15-37) H 06/07/18 04:10 ALT 42 U/L (12-78) 06/07/18 04:10 Alkaline Phosphatase 122 U/L (46-116) H 06/07/18 04:10 Troponin I < 0.02 ng/mL (0.00-0.06) 06/07/18 04:10 Total Protein 6.2 g/dL (6.4-8.2) L 06/07/18 04:10 Albumin 2.7 g/dL (3.4-5.0) L 06/07/18 04:10 Lipase 128 U/L (73-393) 06/06/18 15:10 Serum HCG, Qual Negative 06/06/18 15:10 Urine Opiates Screen Positive (Negative) 06/06/18 17:50 Urine Methadone Screen Negative (Negative) 06/06/18 17:50 Ur Barbiturates Screen Positive (Negative) 06/06/18 17:50 Ur Tricyclics Screen Negative (Negative) 06/06/18 17:50 Ur Amphetamines Screen Negative (Negative) 06/06/18 17:50 U Benzodiazepines Scrn Negative (Negative) 06/06/18 17:50 Urine Cocaine Screen Negative (Negative) 06/06/18 17:50 Ur THC Screen Negative (Negative) 06/06/18 17:50 Patient ABO/Rh O Positive 06/06/18 15:10 Antibody Screen Negative 06/06/18 15:10 Crossmatch See Detail 06/06/18 15:10 US RUQ: IMPRESSION: 1, Small amount of perihepatic and pericholecystic fluid, otherwise no evidence of cholelithiasis or choledocholithiasis sonographically.
[2018-06-07] MEDS: POTASSIUM CHLORIDE/D5-0.9%NACL 1,000 ML 150 MEQ IV ×2 (13:33→19:54)
[2018-06-07 14:05] LABS: HCT 32.9 % (36.0-46.0); HGB 10.7 g/dL (12.0-15.5)
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
--- NOTE | 2018-06-07 15:30 | CHAPLAIN ---
Symone was sitting up in bed when I visited. She was quiet, pleasant and engaged in conversation with me. She said she was hoping to go home today, but has to stay another night. Her boyfriend was in to visit and brought her bean. She is looking forward to being discharged.
[2018-06-07] MEDS: Pantoprazole 40 MG VIAL IVP (19:07)
[2018-06-07] MEDS: Sucralfate 1 GM TAB PO ×2 (19:07→23:16)
[2018-06-07 22:23] LABS: HCT 30.3 % (36.0-46.0)
[2018-06-07] MEDS: Melatonin 3 MG TAB PO (22:25)
[2018-06-08] VITALS (10 sets, daily range): BP systolic 123–142; BP diastolic 71–87; PULSE 70–85; RESP 14–17; TEMP 36.7–37.5; O2SAT 97
[2018-06-08] MEDS: Ondansetron 4 MG TAB PO ×3 (02:15→11:22)
[2018-06-08] MEDS: POTASSIUM CHLORIDE/D5-0.9%NACL 1,000 ML 150 MEQ IV ×2 (02:21→09:29)
[2018-06-08] MEDS: Sucralfate 1 GM TAB PO ×2 (06:01→11:22)
[2018-06-08] MEDS: Acetaminophen 325 MG TAB 650 MG PO ×2 (06:06→10:51)
[2018-06-08 06:48] LABS: Abs Immature Grans 0.02 k/cumm (0.0-0.09); Absolute Basophil Count 0.02 k/cumm (0.0-0.2); Absolute Eosinophil Count 0.21 k/cumm (0.0-0.7); Absolute Monocyte Count 0.64 k/cumm (0.11-0.7); Absolute Neutrophil Count 6.93 k/cumm (1.2-6.7); Basophils % 0.2; Eosinophils % 2.3; HCT 33.7 % (36.0-46.0); HGB 10.8 g/dL (12.0-15.5); Immature Grans % 0.2; Lymphocytes % 14.3; Mean Corpuscular Hemoglobin 24.8 pg (27.0-33.0); Mean Corpuscular Volume 77.3 fL (80-95); Platelet Count 416 x1000/uL (130-400); RBC 4.36 m/cumm (4.00-5.20); RBC Distribution Width 18.4 % (11.7-14.6); White Blood Cell Count 9.12 k/cumm (4.4-10.8)
[2018-06-08 06:50] LABS: Anion Gap 9.1 mmol/L (3-11); BUN 3 mg/dL (7-18); CO2 22.9 mmol/L (21.0-32.0); CREATININE 0.68 mg/dL (0.55-1.02); Calcium 8.2 mg/dL (8.5-10.1); Chloride 107 mmol/L (98-107); Glucose 117 mg/dL (70-100); Magnesium 1.9 mg/dL (1.8-2.4); Potassium 4.1 mmol/L (3.5-5.1); Sodium 139 mmol/L (136-145)
[2018-06-08] MEDS: Zonisamide 100 MG CAP 300 MG PO (07:49)
[2018-06-08] MEDS: traMADol 50 MG TAB PO ×2 (07:49→11:22)
[2018-06-08] MEDS: Pregabalin 50 MG CAP 150 MG PO ×2 (07:49→13:56)
[2018-06-08] MEDS: Pantoprazole 40 MG VIAL IVP (07:49)
[2018-06-08] MEDS: Normal Saline Flush 10 ML SYR IVP (07:49)
[2018-06-08] MEDS: DULoxetine 30 MG CAP 60 MG PO (07:49)
--- NOTE | 2018-06-08 09:40 | PDOC.CMPRO ---
- If Service Date Differs Date of service: 06/08/18 Time of Service: 09:40 Care Management Progress Note S/O: Symone is sitting in bed in the ICU when CM visits this morning. She has been transferred to PA status and remains in the ICU pending bed availability. She is engaged in conversation, makes good eye contact, and is talkative. Symone reports that she is struggling with being in the hospital today and wants to leave. CM asked to speak with patient regarding leaving AMA vs. waiting for MD. Symone reports that her pain is much improved; she needed no morphine for pain over night, requiring only tramadol and APAP this morning. She has been receiving zofran for nausea but has had no vomiting. Her diet is presently clear liquids; CM and patient discussed advancing her diet prior to discharge. Symone agreed to wait for MD and discuss her wishes for discharge. Symone continues to receive IV fluids. Dr. Carvalho met with Symone who had an outpatient appointment scheduled for today, and Symone has agreed to follow up with Denny Canas at [facility] for continued counseling services. A: 48 year old woman admitted with anemia, dizziness, dehydration, vomiting and liver edema. P: Symone will discharge home when medically ready per MD. Anticipate patient will discharge with no services and follow up with her PCP and Denny Canas at [facility]. Symone will transport with her daughter via private vehicle. CM will continue to offer support to patient and care team regarding discharge planning and disposition.
--- NOTE | 2018-06-08 10:01 | CMPROGNOTE_ITS ---
- If Service Date Differs Date of service: 06/08/18 Time of Service: 09:40 Care Management Progress Note S/O: Symone is sitting in bed in the ICU when CM visits this morning. She has been transferred to ME status and remains in the ICU pending bed availability. She is engaged in conversation, makes good eye contact, and is talkative. Symone reports that she is struggling with being in the hospital today and wants to leave. CM asked to speak with patient regarding leaving AMA vs. waiting for MD. Symone reports that her pain is much improved; she needed no morphine for pain over night, requiring only tramadol and APAP this morning. She has been receiving zofran for nausea but has had no vomiting. Her diet is presently clear liquids; CM and patient discussed advancing her diet prior to discharge. Symone agreed to wait for MD and discuss her wishes for discharge. Symone continues to receive IV fluids. Dr. Carvalho met with Symone who had an outpatient appointment scheduled for today, and Symone has agreed to follow up with Denny Canas at [facility] for continued counseling services. A: 48 year old woman admitted with anemia, dizziness, dehydration, vomiting and liver edema. P: Symone will discharge home when medically ready per MD. Anticipate patient will discharge with no services and follow up with her PCP and Denny Canas at [facility]. Symone will transport with her daughter via private vehicle. CM will continue to offer support to patient and care team regarding discharge planning and disposition.
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
--- NOTE | 2018-06-08 12:47 | W.PM.PROGNOT ---
Date of Service Date of service: 06/08/18 Time of Service: 12:47 Assessment and Plan (1) Upper GI bleeding: Current visit: Yes Status: Acute A\\ Improvement in symptoms of gastritis. P\\ From surgical stand point patient may be discharged home once medically stable from other issues Discussed with patient staying away from any NSAIDS. Diet: bland, low acid, low spice and low fat (patient should get a handout for gastritis and PUD disease diet upon discharge). Small meals often Medications: Protonix 40 mg BID' Carafate 1 gm po QID. Make sure not to take other medications within 1 hour of the Carafate. Zofran 4 mg ODT Q6 hours as needed Fecal H. pylori test pending at this time. If positive will call patient and start on antibiotics Follow up with me in 2 weeks to discuss EGD. Subjective Interval history since last seen: Patient report feeling better today. Nausea is much improved as well as pain. No more emesis. Ate a little bit of lunch without increased pain or vomiting. Exam GI Inspection: normal to inspection Palpation: soft, no hepatosplenomegaly and tender (mild epigastric. No rebound or guarding) Objective Objective Clinical Data: Abnormal lab results 06/07/18 06/07/18 06/08/18 Range/Units 13:50 22:00 06:15 Hgb 10.7 L 10.0 L (12.0-15.5) g/dL Hct 32.9 L 30.3 L (36.0-46.0) % MCV (80-95) fL MCH (27.0-33.0) pg RDW (11.7-14.6) % Plt Count (130-400) x1000/uL Absolute Neutrophils (1.2-6.7) k/cumm BUN 3 L (7-18) mg/dL Glucose 117 H (70-100) mg/dL Calcium 8.2 L (8.5-10.1) mg/dL 06/08/18 Range/Units 06:15 Hgb 10.8 L (12.0-15.5) g/dL Hct 33.7 L (36.0-46.0) % MCV 77.3 L (80-95) fL MCH 24.8 L (27.0-33.0) pg RDW 18.4 H (11.7-14.6) % Plt Count 416 H (130-400) x1000/uL Absolute Neutrophils 6.93 H (1.2-6.7) k/cumm BUN (7-18) mg/dL Glucose (70-100) mg/dL Calcium (8.5-10.1) mg/dL Vital Signs Temperature 99.3 F 06/08/18 08:28 Temperature Source Temporal Artery Scan 06/08/18 08:28 Pulse 79 06/08/18 10:00 Pulse 76 06/08/18 10:00 Respiratory Rate 14 06/08/18 10:00 Respiratory Effort 06/08/18 08:28 Respiratory Depth Normal 06/08/18 08:28 Respiratory Pattern Normal 06/08/18 08:28 Blood Pressure 142/87 H 06/08/18 10:00 Blood Pressure Mean 101 06/08/18 10:00 Blood Pressure Position Sitting 06/07/18 20:00 Pulse Oximetry 97 06/08/18 08:28 Oxygen Delivery Method Room Air 06/08/18 08:28 Oxygen Flow Rate 0 06/08/18 08:28 Pain Level 7 06/08/18 11:22 Intake & Output 06/07/18 06/08/18 06/08/18 23:59 11:59 23:59 Intake Total 2778.5 / 2778.5 1735 / 1735 Output Total 2625 / 2625 1974 Balance 153.5 / 153.5 -240 / -240 Weight 126 lb 1.671 oz Intake: IV 2378.5 / 2378.5 1615 / 1615 Oral 400 / 400 120 / 120 Output: Urine 2625 / 2625 1974 Other: Urine Color Yellow Yellow Urine Appearance Clear Clear Urine Odor Normal None Comment Pt uses bedside commode independently. Voiding via BSC independently. Voiding Methods Bedside Commode Bedside Commode Laboratory Results WBC 9.12 k/cumm (4.4-10.8) 06/08/18 06:15 RBC 4.36 m/cumm (4.00-5.20) 06/08/18 06:15 Hgb 10.8 g/dL (12.0-15.5) L 06/08/18 06:15 Hct 33.7 % (36.0-46.0) L 06/08/18 06:15 MCV 77.3 fL (80-95) L 06/08/18 06:15 MCH 24.8 pg (27.0-33.0) L 06/08/18 06:15 MCHC 32.0 g/dL (32.0-36.0) 06/08/18 06:15 RDW 18.4 % (11.7-14.6) H 06/08/18 06:15 Plt Count 416 x1000/uL (130-400) H 06/08/18 06:15 MPV 11.0 fL (8.0-11.0) 06/08/18 06:15 Immature Gran % 0.2 06/08/18 06:15 Neutrophils % 76.0 06/08/18 06:15 Lymphocytes % 14.3 06/08/18 06:15 Monocytes % 7.0 06/08/18 06:15 Eosinophils % 2.3 06/08/18 06:15 Basophils % 0.2 06/08/18 06:15 Absolute Neutrophils 6.93 k/cumm (1.2-6.7) H 06/08/18 06:15 Absolute Lymphocytes 1.30 k/cumm (1.2-3.4) 06/08/18 06:15 Absolute Monocytes 0.64 k/cumm (0.11-0.7) 06/08/18 06:15 Absolute Eosinophils 0.21 k/cumm (0.0-0.7) 06/08/18 06:15 Absolute Basophils 0.02 k/cumm (0.0-0.2) 06/08/18 06:15 Retic Count 1.7 % (0.5-2.4) 06/06/18 15:10 PT 9.7 sec (9.3-10.8) 06/06/18 15:10 INR 1.0 (1.0-3.5) 06/06/18 15:10 APTT 22.2 sec (21.0-31.4) 06/06/18 15:10 Sodium 139 mmol/L (136-145) 06/08/18 06:15 Potassium 4.1 mmol/L (3.5-5.1) D 06/08/18 06:15 Chloride 107 mmol/L (98-107) 06/08/18 06:15 Carbon Dioxide 22.9 mmol/L (21.0-32.0) 06/08/18 06:15 Anion Gap 9.1 mmol/L (3-11) 06/08/18 06:15 BUN 3 mg/dL (7-18) L 06/08/18 06:15 Creatinine 0.68 mg/dL (0.55-1.02) 06/08/18 06:15 Estimated GFR/1.73 m2 >= 60.00 (mL/min/1.73m2) 06/08/18 06:15 Glucose 117 mg/dL (70-100) H 06/08/18 06:15 Calcium 8.2 mg/dL (8.5-10.1) L 06/08/18 06:15 Magnesium 1.9 mg/dL (1.8-2.4) 06/08/18 06:15 Iron 14 ug/dL (50-175) L 06/06/18 15:10 TIBC 398 ug/dL (250-450) 06/06/18 15:10 Transferrin % Sat 4 % (15-50) L 06/06/18 15:10 Ferritin 5 ng/mL (8-388) L 06/06/18 15:10 Total Bilirubin 0.2 mg/dL (0.2-1.0) 06/07/18 04:10 AST 40 U/L (15-37) H 06/07/18 04:10 ALT 42 U/L (12-78) 06/07/18 04:10 Alkaline Phosphatase 122 U/L (46-116) H 06/07/18 04:10 Troponin I < 0.02 ng/mL (0.00-0.06) 06/07/18 04:10 Total Protein 6.2 g/dL (6.4-8.2) L 06/07/18 04:10 Albumin 2.7 g/dL (3.4-5.0) L 06/07/18 04:10 Lipase 128 U/L (73-393) 06/06/18 15:10 Serum HCG, Qual Negative 06/06/18 15:10 Urine Opiates Screen Positive (Negative) 06/06/18 17:50 Urine Methadone Screen Negative (Negative) 06/06/18 17:50 Ur Barbiturates Screen Positive (Negative) 06/06/18 17:50 Ur Tricyclics Screen Negative (Negative) 06/06/18 17:50 Ur Amphetamines Screen Negative (Negative) 06/06/18 17:50 U Benzodiazepines Scrn Negative (Negative) 06/06/18 17:50 Urine Cocaine Screen Negative (Negative) 06/06/18 17:50 Ur THC Screen Negative (Negative) 06/06/18 17:50 Patient ABO/Rh O Positive 06/06/18 15:10 Antibody Screen Negative 06/06/18 15:10 Crossmatch See Detail 06/06/18 15:10
--- NOTE | 2018-06-08 14:43 | DSE_ITS ---
Date of service: 06/08/18 Time of Service: 14:39 DS: Diagnosis Discharge Diagnosis (1) Generalized anxiety disorder: Status: Chronic (2) Upper GI bleeding: Status: Acute (3) Seizure disorder: Status: Chronic (4) Anemia due to acute blood loss: Status: Acute (5) Vasovagal syncope: Status: Acute (6) Symptomatic anemia: Status: Acute (7) Epigastric abdominal pain: Status: Acute (8) Chronic pain syndrome: Status: Chronic Discharge Plan Disposition Patient Disposition: HOME Condition: Improving Discharge Details Reason For Visit: ANEMIA,DIZZINESS,DEHYDRATION,VOMITING,LIVER EDEMA Admit Date/Time: 06/06/18 17:28 Admit Provider: Alvin Haro Attending Provider: Alvin Haro Primary Care Provider: Barber Espinal [facility] Course Hospital Course: Ms Alamo is a 48 year old female with PMHx of chronic pain, normally on ultram therapy, seizure disorder, h/o TBI with subdural hematoma, who had presented and was admitted to [facility] on 06/06/18 for hematemesis and severe epigastric abdominal pain with description of several vasovagal syncopal episodes at home as well as symptomatic anemia with H/H of 7.7/33.7. She was admitted to the ICU, received a transfusion of 2 units of pRBC's, was treated with intravenous PPI therapy, and was evaluated by general surgery. Per Dr Cortes, the patient will require outpatient upper endoscopy, but at this time, as her bleeding has stopped and she is improving with medical therapy of protonix and carafate, endoscopy is not indicated. It does appear that this episode of precipitated by excessive use of NSAIDs as outpatient because the patient had run out of her ultram. Over a week ago, per PCP, the patient had taken all of her ultram and tizanidine at the same time, with self-induced vomiting thereafter and denial of suicidal ideation. As she no longer had any ultram left at home, she was taking excessive amounts of ibuprofen (>20 tablets/ day) to control her pain in the days preceding this admission. The patient should abstain from NSAIDs on discharge. I discussed the case with Dr Espinal, and we both feel that the patient can have a 1-2 day supply of ultram prescribed on discharge until her next refill of ultram is due (06/12/18). The patient has been able to tolerate a regular consistency diet without worsening pain and, per general surgery, can be discharged home today. The patient also met with Dr Gonzalez. It was felt that her risk for intentional self- harm was low, but risk of self-harm due to poor coping strategies was high. Therefore, an agreement was established between the patient's significant other (Aaron), patient herself, and Dr Gonzalez that Aaron would hold on and dispense all her medications. The patient will need to follow up with Dr Cortes in 2 weeks. Home Meds and New Rx's Prescriptions: New tramadol 50 mg Tablet 50 mg PO Q4H PRN PRN (Reason: pain) Qty: 12 RF: 0 sucralfate 1 gram Tablet 1 g PO Q6H 14 Days Qty: 56 RF: 0 ondansetron HCl [Zofran] 4 mg tablet 4 mg PO TID PRN (Reason: nausea and vomiting) Qty: 15 RF: 0 omeprazole 40 mg capsule,delayed release(DR/EC) 40 mg PO BID Qty: 60 RF: 0 Continue linaclotide [Linzess] 145 mcg capsule 145 mcg PO DAILY Qty: 90 RF: 4 tramadol 50 mg tablet 50 mg PO Q4H MDD 6 tabs PRN (Reason: pain) Qty: 168 RF: 0 qoadqhdgqy-ymhiwmjytmzvp-ljhz 50-325-40 mg capsule 1 cap PO Q6H PRN (Reason: pain) Qty: 30 RF: 0 albuterol sulfate [ProAir HFA] 90 mcg/actuation HFA aerosol inhaler 2 puff IH Q6H PRNRF: 0 duloxetine 60 mg capsule,delayed release(DR/EC) 60 mg PO DAILY RF: 0 melatonin-pyridoxine HCl (B6) 1 EACH tablet 1 ea PO HS PRN RF: 0 zonisamide 100 MG capsule 300 mg PO DAILY RF: 0 amitriptyline 25 mg tablet 25 mg PO HS Qty: 30 RF: 4 ondansetron HCl 4 mg tablet 4 mg PO QID PRN (Reason: nausea and vomiting) Qty: 30 RF: 4 pregabalin [Lyrica] 150 mg capsule 150 mg PO TID Qty: 90 RF: 2 Discharge Instructions Instructions: Sucralfate (By mouth), Omeprazole (By mouth), Gastrointestinal Bleeding (DC) Additional Instructions: Do not take any medications in the NSAID family, including, but not limited to ibuprofen (motrin, advil), aleve (naproxen, naprosyn), aspirin. Return to the hospital with any recurrence of bleeding, worsening abdominal pain , chest pain, or shortness of breath. Take your pain medication no more often, than prescribed. Contact your PCP if you run out of your ultram prescription. Activity:: Activity as Tolerated Equipment/Supplies:: No Equipment Needed Diet:: bland diet Discharge Orders Discharge Orders: Discharge Order (Routine); Ordered 06/08/18 Ordered By: Beba Cordero Exam Narrative Exam Narrative: General: A&Ox3, looks much better HEENT: EOMI, moist mucuous membranes Heart: RRR, no murmurs, rubs, or gallops Lungs: CTAB Abdomen: soft, no longer tender in epigastrium Extremities: no edema, clubbing, or cyanosis of BLE's DS: Data Vitals/I&O Vitals and I&O: Vital Signs Temperature 37.5 C 06/08/18 13:09 Temperature Source Temporal Artery Scan 06/08/18 13:09 Pulse 85 06/08/18 13:02 Pulse 78 06/08/18 13:02 Respiratory Rate 15 06/08/18 13:02 Respiratory Effort 06/08/18 08:28 Respiratory Depth Normal 06/08/18 08:28 Respiratory Pattern Normal 06/08/18 08:28 Blood Pressure 123/71 06/08/18 13:02 Blood Pressure Mean 83 06/08/18 13:02 Blood Pressure Position Sitting 06/07/18 20:00 Pulse Oximetry 97 06/08/18 08:28 Oxygen Delivery Method Room Air 06/08/18 08:28 Oxygen Flow Rate 0 06/08/18 08:28 Pain Level 7 06/08/18 11:22 Intake & Output 06/07/18 06/08/18 06/08/18 23:59 11:59 23:59 Intake Total 2778.5 / 2778.5 1735 / 1735 845 / 845 Output Total 2625 / 2625 1974 / 1974 Balance 153.5 / 153.5 -240 / -240 845 / 845 Weight 57.2 kg Intake: IV 2378.5 / 2378.5 1615 / 1615 725 / 725 Oral 400 / 400 120 / 120 120 / 120 Output: Urine 2625 / 2625 1974 Other: Urine Color Yellow Yellow Urine Appearance Clear Clear Urine Odor Normal None Comment Pt uses bedside commode independently. Voiding via BSC independently. Voiding Methods Bedside Commode Bedside Commode Completed studies during hospitalization [Text1]: CXR 06/06/18: Normal chest. CT head without contrast: Normal noncontrast Cranial CT. CT abdomen/pelvis: 1. Periportal hepatic edema. 2. Decreased attenuation in the gallbladder wall with gallbladder wall thickening and pericholecystic fluid. No cholelithiasis is seen. Sonographic correlation is recommended. This may represent cholecystitis, however, disease from the adjacent liver can not be excluded. 3. Colonic diverticulosis but no evidence of acute diverticulitis. CT chest: Mildly enlarged mediastinal lymph nodes. These are nonspecific. Labs on day of discharge: Labs from last 24 hours 06/08/18 06/08/18 06/07/18 06:15 06:15 22:00 WBC 9.12 RBC 4.36 Hgb 10.8 L 10.0 L Hct 33.7 L 30.3 L MCV 77.3 L MCH 24.8 L MCHC 32.0 RDW 18.4 H Plt Count 416 H MPV 11.0 Immature Gran % 0.2 Neutrophils % 76.0 Lymphocytes % 14.3 Monocytes % 7.0 Eosinophils % 2.3 Basophils % 0.2 Absolute Neutrophils 6.93 H Absolute Lymphocytes 1.30 Absolute Monocytes 0.64 Absolute Eosinophils 0.21 Absolute Basophils 0.02 Sodium 139 Potassium 4.1 D Chloride 107 Carbon Dioxide 22.9 Anion Gap 9.1 BUN 3 L Creatinine 0.68 Estimated GFR/1.73 m2 >= 60.00 Glucose 117 H Calcium 8.2 L Magnesium 1.9 PFSH Acne vulgaris Anxiety Cervical disc disorder with myelopathy Chronic pain Constipation Depression Headache Overactive bladder Panic attacks Peripheral neuralgia Seizure Subdural hematoma, post-traumatic Medical History Acne vulgaris Anxiety Cervical disc disorder with myelopathy Chronic pain Constipation Depression Headache Overactive bladder Panic attacks Peripheral neuralgia Seizure Subdural hematoma, post-traumatic Social History Smoking/Tobacco Use Status: Never alcohol intake: never substance use type: does not use and former substance user Date of last use: PREVIOUS HISTORY OF BENZODIAZEPIEN DEPENDANCE.CHRONIC PAIN Social History Smoking/Tobacco Use Status: Never alcohol intake: never substance use type: does not use and former substance user Date of last use: PREVIOUS HISTORY OF BENZODIAZEPIEN DEPENDANCE.CHRONIC PAIN
--- NOTE | 2018-06-08 15:16 | PDOC.CMDIS ---
- If Service Date Differs Date of service: 06/08/18 Time of Service: 15:16 LACE Index Scoring Tool - Questions: Length of Stay (in days): 3 Acuity (Admit via E.D.?): Yes E.D. Visits: 1 - Answers: Total Score: 7 Risk of Readmission: Low Risk Care Management Discharge Reason for Hospitalization: Anemia, dizziness, dehydration, vomiting, liver edema. Discharge Plan: Symone will discharge home when medically ready per MD. Anticipate patient will discharge with no services and follow up with her PCP and Denny Canas at [facility]. Symone will transport via private vehicle with her daughter. Patient/Family Education Needs: Discharge education, any limitations, and follow up plan of care. Ask Me Three discussion.
== END 2018-06-08 14:50 | disposition home or self-care (01) | DRG 880 ==
LOC: ER 17:47 → ICU 18:27
PROVIDERS: Admitting Provider Family Medicine; Emergency Provider Physician Assistant; PCP Family Medicine; Visit Provider Internal Medicine
DX: F41.1 Generalized anxiety disorder (principal); K92.2 Gastrointestinal hemorrhage, unspecified; G40.909 Epilepsy, unspecified, not intractable, without status epilepticus; D50.0 Iron deficiency anemia secondary to blood loss (chronic); R55 Syncope and collapse; R10.13 Epigastric pain; G89.29 Other chronic pain; Z79.1 Long term (current) use of non-steroidal anti-inflammatories (NSAID); K76.89 Other specified diseases of liver; R13.10 Dysphagia, unspecified; G89.4 Chronic pain syndrome
CPT/HCPCS: 36415; 36430; 74177; 80048; 80053; 80307; 83690; 85027; 86850; 86900; 86901; 86920; 96361; 96374; 96375; 99222; 99223; 99233; 99239; 99253; 99255; 99285; 70450; 71045; 71260; 76705; 82728; 83540; 83550; 83735; 84484; 84703; 85014; 85018; 85025; 85045; 85610; 85730; J0780; J1200; J2270; J2405; J2765; J3475; J3480; J3490; J8597; P9016

== ENCOUNTER → 2018-07-16 13:36 | Outpatient (BNVA) | payer MEDICARE, SELFPAY | PROVIDERS: PCP Family Medicine; Referring Provider Family Medicine; Visit Provider Physical Therapy Assistant | DX: R10.10 Upper abdominal pain, unspecified (principal) | CPT/HCPCS: 99213 ==

== ENCOUNTER 2018-07-22 10:07 | Day surgery (SDC) | payer MEDICARE, SELFPAY ==
[2018-07-22 10:35] VITALS: BP 125/87; PULSE 90; RESP 16; TEMP 36.8; O2SAT 100
[2018-07-22] MEDS: Lactated Ringers 1,000 ML 80 ML IV (10:50)
--- NOTE | 2018-07-22 12:08 | STOM_PTH ---
PATIENT: GUS BENJAMIN LOC: [facility] U#:[id number] AGE/SX: 48/F ROOM: RE07/22/[address]: Alma Cortes MD : 1970 BED: DIS: 07/22/2018 SPEC #: [id number] RECD: 07/22/18 13:09 STATUS: OLIVA RE #: [id number] ELIDA: 07/22/18 12:[address]: Alma Cortes DEPT: Surgical Specimen RECD BY: Nata Evangelista ENTERED: 07/22/18 13:10 SP TYPE: STOMACH OTHR DR: Barber Espinal MD Tissues: 1 - STOMACH BIOPSY 2 - STOMACH BIOPSY Procedures: GROSS AND MICRO LEVEL 4 Comments: [id number]
--- NOTE | 2018-07-22 12:32 | W.PM.ENDDOP ---
Date of service: 07/22/18 Time of Service: 13:16 Endoscopy Report DATE OF PROCEDURE: 07/22/18 PRE-OP DIAGNOSIS: Vomiting POST-OP DIAGNOSIS: other (GAstritis, gastric ulcer, ? marie brennan tears healing) PROCEDURE: EGD with biopsy SURGEON: Alma Cortes ANESTHESIA: MAC (Angeles Bates, DOWNSTREAM BIOM[employer]CTURING TECHNICIAN/ ASA 2) ESTIMATED BLOOD LOSS: 3 PATHOLOGY: other (Gastric ulcer, antrum bx) COMPLICATIONS: None DISPOSITION: same day INDICATIONS: Mrs. Alamo is a pleasant 48-year-old female who was seen in the hospital and then again in the office. She was admitted to the hospital with admitting anemia and upper GI bleed secondary to vomiting. She was discharged from the hospital on omeprazole 40 mg twice daily as well as Carafate 4 times daily for 2 weeks. She continues to have emesis once or twice a day. She is here today to have an upper endoscopy done with biopsies. Unfortunately while she was in the hospital we tried to get an H. pylori fecal test but the patient was not able to go to the bathroom so that was never done. Risks, benefits, complications of the procedure were reviewed with her and she wished to proceed. No guarantees were given or implied. FINDINGS: 1. Large GAstric ulcer at the pylorus 2. Gastritis 3. ? healing marie brennan tears in the body and cardia PROCEDURE DESCRIPTION: After informed consent was obtained the patient was take to the procedure room and placed in a supine position. Monitors were applied and a time out was done. The patients name, date of , procedure type, allergies to medications and metal in their body was reviewed. A bite block was placed and the patient was sedated. Once sedated and comfortable the gastroscope was advanced through the oropharynx which was grossly normal into the esophagus. The proximal and mid-esophagus were normal. In the distal esophagus there was no inflammation noted. The scope was advanced into the stomach and through the pylorus into the 3rd portion of the duodenum. The duodenum was noted to be normal. The scope was retracted back into the stomach and biopsies were done to rule out H. pylori. There was one large ulcer just above the pylorus. The scope was retroflexed. The cardia and fundus were noted to have some inflammation. There were white streaks noted from the stomach to the GE junction. ? healing tears from the vomiting. There was no acute bleeding. The scope was retracted back into the esophagus. The Z line was regular. The GE junction was at 35 cm and there was no inflammation. The scope was removed and the patient was woken up and taken back to [facility] in stable condition. Follow up: 2-3 weeks in the office. Will re-start Carafate QID. Will await H. pylori results. She will need to be rescoped in 3 months to make sure the ulcer has healed.
--- NOTE | 2018-07-22 12:34 | PDOC.DSDIS_ITS ---
Discharge Plan Disposition Patient Disposition: HOME Condition: Good Discharge Details Reason For Visit: Nausea, vomiting, GI bleed Attending Provider: Alma Cortes Primary Care Provider: Barber Espinal Home Meds and New Rx's Prescriptions: Continued Linzess 145 mcg capsule 145 mcg PO DAILY Qty: 90 RF: 4 ProAir HFA 90 mcg/actuation HFA aerosol inhaler 2 puff IH Q6H PRNRF: 0 duloxetine 60 mg capsule,delayed release(DR/EC) 60 mg PO DAILY RF: 0 melatonin-pyridoxine HCl (B6) 1 EACH tablet 1 ea PO HS PRN RF: 0 amitriptyline 25 mg tablet 25 mg PO HS Qty: 30 RF: 4 Lyrica 150 mg capsule 150 mg PO TID Qty: 90 RF: 2 nlizthheuw-mnusgdvtrhblr-ltmw 50-325-40 mg capsule 1 cap PO Q6H PRN (Reason: pain) Qty: 30 RF: 0 zonisamide 100 mg capsule 300 mg PO DAILY Qty: 30 RF: 3 tramadol 50 mg tablet 50 mg PO Q4H MDD 6 tabs PRN (Reason: pain) Qty: 168 RF: 0 ondansetron HCl [Zofran] 4 mg tablet 4 mg PO TID PRN (Reason: nausea and vomiting) Qty: 15 RF: 0 omeprazole 40 mg capsule,delayed release(DR/EC) 40 mg PO BID Qty: 60 RF: 0 Discharge Instructions Instructions: Peptic Ulcer (DC), Gastritis (DC), Diet for Stomach Ulcers and Gastritis (GEN), Upper Endoscopy (DC) Additional Instructions: Findings:1. Ulcers in your stomach 2. Inflammation of the stomach Follow up: 2-3 weeks in the office Please call if you develop: fevers >101.5 Nausea or Vomiting Abdominal pain that is not transient DAY SURGERY UNIT POST COLONOSCOPY INSTRUCTIONS 1. Because there will be medication in your system for the next 24 hours, you may feel a little sleepy. Your coordination will be affected. Therefore: a. Do not drive or operate dangerous equipment for 24 hours. b. Do not drink alcohol beverages for 24 hours (not even beer). c. Plan to go home and rest for the day. 2. Generally there are no restrictions on your activity after a day or so has gone by, but you may feel a bit fatigued for a few days. 3 After you arrive home you may have a light meal and return to a normal diet as you can tolerate it without feeling sick to your stomach. 4. After surgery, you may feel pain or discomfort. This should be only transient, but if it persists please contact your doctor. 5. If there are any questions regarding the findings of your procedure, please feel free to contact your doctor. 6. If you are unable to contact your doctor with a problem, contact the hospital at [phone]. 7. Continue all your regular medications unless directed otherwise. I understand the above instructions and have no questions. Signature of Patient or Responsible Adult Escort Date/Time Name of Responsible Adult Escort Signature of Nurse Date/Time Referrals: Alma Cortes MD [ [facility] STAFF PHYSICIAN] - (2-3 weeks) Activity:: Activity as Tolerated Diet:: Low acid diet DS: Diagnosis Discharge Diagnosis (1) Gastric ulcer: Status: Acute (2) Gastritis: Status: Acute (3) H/O esophagogastroduodenoscopy: Status: Chronic
[2018-07-22 12:55] VITALS: BP 131/86; PULSE 75; RESP 16; TEMP 37; O2SAT 100
== END 2018-07-22 13:14 | disposition home or self-care (01) ==
PROVIDERS: PCP Family Medicine; Visit Provider Surgery
PROC: 0DJ68ZZ Inspection of Stomach, Via Natural or Artificial Opening Endoscopic (ICD-10-PCS; CPT 43235; principal; 2018-07-22 11:30)
DX: R11.2 Nausea with vomiting, unspecified (principal); R10.11 Right upper quadrant pain; R10.12 Left upper quadrant pain; Z87.19 Personal history of other diseases of the digestive system; K25.9 Gastric ulcer, unspecified as acute or chronic, without hemorrhage or perforation; K29.70 Gastritis, unspecified, without bleeding
CPT/HCPCS: 43239; 81025; 88305

== ENCOUNTER → 2018-08-27 08:07 | Outpatient (BNVA) | payer MEDICARE, SELFPAY | PROVIDERS: PCP Family Medicine; Referring Provider Family Medicine; Visit Provider Surgery | DX: K25.3 Acute gastric ulcer without hemorrhage or perforation (principal); Z48.89 Encounter for other specified surgical aftercare | CPT/HCPCS: 99213 ==

== ENCOUNTER 2018-08-27 08:54 | Outpatient (CLI) | payer MEDICARE, SELFPAY ==
[2018-08-27 11:08] LABS: Abs Immature Grans 0.01 k/cumm (0.0-0.09); Absolute Basophil Count 0.05 k/cumm (0.0-0.2); Absolute Eosinophil Count 0.11 k/cumm (0.0-0.7); Absolute Lymphocyte Count 1.52 k/cumm (1.2-3.4); Basophils % 1.3; Eosinophils % 2.8; HCT 39.9 % (36.0-46.0); HGB 13.1 g/dL (12.0-15.5); Immature Grans % 0.3; Lymphocytes % 39.1; Mean Corp. HGB Concentration 32.8 g/dL (32.0-36.0); Mean Corpuscular Hemoglobin 27.2 pg (27.0-33.0); Mean Platelet Volume 10.4 fL (8.0-11.0); Monocytes % 7.7; Neutrophils % 48.8; Platelet Count 291 x1000/uL (130-400); RBC 4.81 m/cumm (4.00-5.20); RBC Distribution Width 22.1 % (11.7-14.6); White Blood Cell Count 3.89 k/cumm (4.4-10.8)
[2018-08-27 11:38] LABS: ALT 23 U/L (12-78); AST 22 U/L (15-37); Albumin 3.7 g/dL (3.4-5.0); Alkaline Phosphatase 62 U/L (46-116); Anion Gap 7.8 mmol/L (3-11); BUN 16 mg/dL (7-18); Bilirubin, Total 0.3 mg/dL (0.2-1.0); CO2 28.2 mmol/L (21.0-32.0); CREATININE 0.72 mg/dL (0.55-1.02); Calcium 9.5 mg/dL (8.5-10.1); Chloride 106 mmol/L (98-107); Glucose 90 mg/dL (70-100); Potassium 4.5 mmol/L (3.5-5.1); Sodium 142 mmol/L (136-145); Total Protein 7.3 g/dL (6.4-8.2)
[2018-08-27 11:39] LABS: Cholesterol 250 mg/dL (50-200); Triglyceride 152 mg/dL (30-150)
[2018-08-27 12:02] LABS: Anisocytosis 2+; Diff Comment RBC Morph Reviewed; Hypochromasia 1+; Poikilocytes 1+; Polychromasia Present
== END 2018-08-27 09:14 ==
PROVIDERS: PCP Family Medicine; Visit Provider Physician Assistant Medical
DX: L70.9 Acne, unspecified (principal); Z79.899 Other long term (current) drug therapy
CPT/HCPCS: 36415; 80053; 99213; 82465; 84478; 85025

== ENCOUNTER 2018-10-25 06:40 | Day surgery (SDC) | payer MEDICARE, SELFPAY ==
--- NOTE | 2018-10-25 06:36 | W.PM.HP.N ---
Date of service: 10/25/18 Assessment and Plan (1) Gastric ulcer: Current visit: No Status: Resolved A\\ Hx of GI bleed. EGD revealed ulcer in the healing stages. Feels better P\\ Continue Omeprazole 40 mg BID until a repeat EGD in October. If ulcer is healed at time of EGD in October then will try and switch to Zantac 300 mg bid Risks, benefits and complications have been reviewed. Complications include but are not limited to bleeding, pain, perforation, sore throat, aspiration, and adverse reaction to the medications. Questions were entertained and answered to their satisfaction and they wished to proceed. No guarantees were given or implied. Qualifiers: Gastric ulcer chronicity: acute Gastric ulcer complication status: without hemorrhage or perforation Qualified Code(s): K25.3 - Acute gastric ulcer without hemorrhage or perforation History of Present Illness Narrative: Mrs. Alamo is a pleasant 48 year old female who underwent an EGD in July and was found to have an ulcer. She was seen again on 08/27 and was feeling better on 40 mg of omeprazole BID. She is here today for a follow up EGD to make sure the ulcer has healed. Review of Systems Constitutional Denies headache(s), Denies poor appetite and Denies weight loss ENT Denies headache(s) Cardiovascular Denies chest pain, Denies irregular heart rhythm, Denies palpitations, Denies dyspnea and Denies dyspnea on exertion Respiratory Denies cough, Denies dyspnea and Denies dyspnea on exertion Gastrointestinal Reports as per HPI Neurologic Denies headache(s) Endocrine Denies palpitations [facility] Medical History Gastric ulcer (Resolved ~07/22/18) Gastritis (Resolved ~07/22/18) Acne vulgaris Anxiety Cervical disc disorder with myelopathy Chronic pain Constipation Depression Headache Overactive bladder Panic attacks Peripheral neuralgia Seizure Subdural hematoma, post-traumatic Surgical History History of neck surgery (Acute) History of esophagogastroduodenoscopy (EGD) (Chronic ~07/22/18) Social History Smoking/Tobacco Use Status: Never Alcohol Intake: never Drug use: Never Substance use type: does not use and former substance user Date of last use: PREVIOUS HISTORY OF BENZODIAZEPIEN DEPENDANCE.CHRONIC PAIN Do you feel safe at home: Yes Do you feel safe in your relationship?: Yes Meds Home Medications Medication Instructions Recorded Confirmed Type duloxetine 60 mg capsule,delayed 60 mg PO DAILY 03/17/18 10/20/18 History release zonisamide 100 mg capsule 300 mg PO DAILY #30 tab-cap 07/04/18 10/20/18 Rx omeprazole 40 mg capsule,delayed 40 mg PO BID #60 cap 07/30/18 10/20/18 Rx release pregabalin 150 mg capsule 150 mg PO TID #90 cap 08/19/18 10/20/18 Rx tramadol 50 mg tablet 50 mg PO Q4H PRN #168 tab MDD 6 09/28/18 10/20/18 Rx tabs mzygpeuuiz-jmjcuhiywmhem-bcyvmera 1 cap PO Q6H PRN #30 cap 10/05/18 10/20/18 Rx 50 mg-325 mg-40 mg capsule ondansetron HCl 4 mg tablet 4 mg PO TID PRN #15 tab 10/22/18 Rx Allergies Allergy/AdvReac Type Severity Reaction Status Date / Time shellfish derived Allergy Verified 08/27/18 08:14 baclofen AdvReac Intermediate Nausea Verified 08/27/18 08:14 Exam Const General: cooperative, comfortable and no acute distress Orientation: alert and oriented x3 HENMT Head: normocephalic and atraumatic Resp Effort & Inspection: normal respiratory effort Auscultation: clear to auscultation bilaterally Cardio Rate: regular rate Rhythm: regular rhythm Heart Sounds: no gallops, no murmurs and no rubs
--- NOTE | 2018-10-25 06:42 | W.PM.ENDDOP ---
Date of service: 10/25/18 Time of Service: 07:30 Endoscopy Report DATE OF PROCEDURE: 10/25/18 PRE-OP DIAGNOSIS: Hx of Gastric ulcer and GI bleed POST-OP DIAGNOSIS: other (Moderate Gastritis and Gastric ulcer) PROCEDURE: EGD with biopsies SURGEON: Alma Cortes ANESTHESIA: other (General/ ASA 2/ Alvin Palacio CRNA) ESTIMATED BLOOD LOSS: 3 PATHOLOGY: other (ANtrum bx, pyloric ulcer (healing) bx) COMPLICATIONS: None DISPOSITION: same day INDICATIONS: Mrs. Alamo is a pleasant 48 year old female with a history of upper GI bleed and Ulcer found on EGD in July. She is here today for a follow up EGD to make sure the ulcer has healed. Risks, benefits and complications have been reviewed. Complications include but are not limited to bleeding, pain, perforation, sore throat, aspiration, and adverse reaction to the medications. Questions were entertained and answered to their satisfaction and they wished to proceed. No guarantees were given or implied. PROCEDURE START TIME: 07:30 FINDINGS: Healing Gastric ulcer. No signs of bleeding Normal duodenum Mild to moderate inflammation in the antrum No hiatal hernia PROCEDURE DESCRIPTION: After informed consent was obtained the patient was take to the procedure room and placed in a supine position. Monitors were applied and a time out was done. The patients name, date of , procedure type, allergies to medications and metal in their body was reviewed. A bite block was placed and the patient was sedated. Once sedated and comfortable the gastroscope was advanced through the oropharynx which was grossly normal into the esophagus. The proximal and mid-esophagus were normal. In the distal esophagus there was no inflammation noted. The scope was advanced into the stomach and through the pylorus into the 3rd portion of the duodenum. The duodenum was noted to be normal. The scope was retracted back into the stomach and biopsies were done to rule out H. pylori. The ulcer bed was identified just above the pylorus. It looked healed. There was no bleeding. Biopsies of the area were done. The scope was retro-flexed. The cardia and fundus were noted to be normal. There was no hiatal hernia noted. The scope was retracted back into the esophagus. The esophagus was normal. The Z line was regular. The GE junction was at 35 cm. The scope was removed and the patient was woken up and taken back to [facility] in stable condition. Follow up: 2-3 weeks. Will decrease her Omepraxole to 40 daily and see how she does.
--- NOTE | 2018-10-25 06:44 | W.PM.DSUDISC ---
Discharge Plan Disposition Patient Disposition: HOME Condition: Good Discharge Details Reason For Visit: Hx of Gastric ulcer and upper GI bleed Attending Provider: Alma Cortes Primary Care Provider: Barber Espinal Home Meds and New Rx's Prescriptions: Continued duloxetine 60 mg capsule,delayed release(DR/EC) 60 mg PO DAILY RF: 0 Lyrica 150 mg capsule 150 mg PO TID Qty: 90 RF: 2 zonisamide 100 mg capsule 300 mg PO DAILY Qty: 30 RF: 3 tramadol 50 mg tablet 50 mg PO Q4H MDD 6 tabs PRN (Reason: pain) Qty: 168 RF: 0 upcxqcdamf-tczwqjsvnnykh-uagb 50-325-40 mg capsule 1 cap PO Q6H PRN (Reason: pain) Qty: 30 RF: 0 ondansetron HCl [Zofran] 4 mg tablet 4 mg PO TID PRN (Reason: nausea and vomiting) Qty: 15 RF: 0 Changed omeprazole 40 mg capsule,delayed release(DR/EC) 40 mg PO DAILY Qty: 60 RF: 1 Discharge Instructions Instructions: Upper Endoscopy (DC), Diet for Stomach Ulcers and Gastritis (GEN) Additional Instructions: Findings: mild gastritis, ulcer is healed Follow up: 2 weeks Medication: decrease omeprazole to 40 mg daily Please call if you develop: fevers >101.5 Nausea or Vomiting Abdominal pain that is not transient DAY SURGERY UNIT POST COLONOSCOPY INSTRUCTIONS 1. Because there will be medication in your system for the next 24 hours, you may feel a little sleepy. Your coordination will be affected. Therefore: a. Do not drive or operate dangerous equipment for 24 hours. b. Do not drink alcohol beverages for 24 hours (not even beer). c. Plan to go home and rest for the day. 2. Generally there are no restrictions on your activity after a day or so has gone by, but you may feel a bit fatigued for a few days. 3 After you arrive home you may have a light meal and return to a normal diet as you can tolerate it without feeling sick to your stomach. 4. After surgery, you may feel pain or discomfort. This should be only transient, but if it persists please contact your doctor. 5. If there are any questions regarding the findings of your procedure, please feel free to contact your doctor. 6. If you are unable to contact your doctor with a problem, contact the hospital at [phone]. 6. Continue all your regular medications unless directed otherwise. I understand the above instructions and have no questions. Signature of Patient or Responsible Adult Escort Date/Time Name of Responsible Adult Escort Signature of Nurse Date/Time Referrals: Alma Cortes MD [ [facility] STAFF PHYSICIAN] - 11/09/18 1:00 pm Activity:: Activity as Tolerated Diet:: low acid Discharge Orders Discharge Orders: Discharge Order (Routine); Ordered 10/25/18 Ordered By: Alma Cortes DS: Diagnosis Discharge Diagnosis (1) Gastric ulcer: Status: Resolved (2) H/O esophagogastroduodenoscopy: Status: Chronic
--- NOTE | 2018-10-25 06:48 | PDOC.DSDIS_ITS ---
Discharge Plan Disposition Patient Disposition: HOME Condition: Good Discharge Details Reason For Visit: Hx of Gastric ulcer and upper GI bleed Attending Provider: Alma Cortes Primary Care Provider: Barber Espinal Home Meds and New Rx's Prescriptions: Continued duloxetine 60 mg capsule,delayed release(DR/EC) 60 mg PO DAILY RF: 0 Ly[place] 150 mg capsule 150 mg PO TID Qty: 90 RF: 2 zonisamide 100 mg capsule 300 mg PO DAILY Qty: 30 RF: 3 tramadol 50 mg tablet 50 mg PO Q4H MDD 6 tabs PRN (Reason: pain) Qty: 168 RF: 0 luipxoqila-trbwulsyfvpio-lqhj 50-325-40 mg capsule 1 cap PO Q6H PRN (Reason: pain) Qty: 30 RF: 0 ondansetron HCl [Zofran] 4 mg tablet 4 mg PO TID PRN (Reason: nausea and vomiting) Qty: 15 RF: 0 Changed omeprazole 40 mg capsule,delayed release(DR/EC) 40 mg PO DAILY Qty: 60 RF: 1 Discharge Instructions Instructions: Upper Endoscopy (DC), Diet for Stomach Ulcers and Gastritis (GEN) Additional Instructions: Findings: mild gastritis, ulcer is healed Follow up: 2 weeks Medication: decrease omeprazole to 40 mg daily Please call if you develop: fevers >101.5 Nausea or Vomiting Abdominal pain that is not transient DAY SURGERY UNIT POST COLONOSCOPY INSTRUCTIONS 1. Because there will be medication in your system for the next 24 hours, you may feel a little sleepy. Your coordination will be affected. Therefore: a. Do not drive or operate dangerous equipment for 24 hours. b. Do not drink alcohol beverages for 24 hours (not even beer). c. Plan to go home and rest for the day. 2. Generally there are no restrictions on your activity after a day or so has gone by, but you may feel a bit fatigued for a few days. 3 After you arrive home you may have a light meal and return to a normal diet as you can tolerate it without feeling sick to your stomach. 4. After surgery, you may feel pain or discomfort. This should be only transient, but if it persists please contact your doctor. 5. If there are any questions regarding the findings of your procedure, please feel free to contact your doctor. 6. If you are unable to contact your doctor with a problem, contact the hospital at [phone]. 8. Continue all your regular medications unless directed otherwise. I understand the above instructions and have no questions. Signature of Patient or Responsible Adult Escort Date/Time Name of Responsible Adult Escort Signature of Nurse Date/Time Referrals: Alma Cortes MD [ [facility] STAFF PHYSICIAN] - 11/09/18 1:00 pm Activity:: Activity as Tolerated Diet:: low acid Discharge Orders Discharge Orders: Discharge Order (Routine); Ordered 10/25/18 Ordered By: Alma Cortes DS: Diagnosis Discharge Diagnosis (1) Gastric ulcer: Status: Resolved (2) H/O esophagogastroduodenoscopy: Status: Chronic
[2018-10-25 06:53] VITALS: BP 107/75; PULSE 82; RESP 16; TEMP 36.4; O2SAT 100
[2018-10-25] MEDS: Lactated Ringers 1,000 ML 80 ML IV (07:12)
[2018-10-25] MEDS: Lidocaine 2% Viscous 15 ML CUP (07:20)
--- NOTE | 2018-10-25 07:33 | STOM_PTH ---
PATIENT: GUS BENJAMIN LOC: [facility] U#:[id number] AGE/SX: 48/F ROOM: RE10/25/[address]: Alma Cortes MD : 1970 BED: DIS: 10/25/2018 SPEC #: [id number] RECD: 10/25/18 12:44 STATUS: OLIVA RE #: [id number] ELIDA: 10/25/18 07:[address]: Alma Cortes DEPT: Surgical Specimen RECD BY: Nata Evangelista ENTERED: 10/25/18 12:45 SP TYPE: STOMACH OTHR DR: Barber Espinal MD Tissues: 1 - STOMACH BIOPSY 2 - STOMACH BIOPSY Procedures: GROSS AND MICRO LEVEL 4 Comments: [id number]
[2018-10-25 08:09] VITALS: BP 121/83; PULSE 75; RESP 16; TEMP 36.7; O2SAT 100
== END 2018-10-25 08:38 | disposition home or self-care (01) ==
PROVIDERS: PCP Family Medicine; Visit Provider Surgery
PROC: 0DJ68ZZ Inspection of Stomach, Via Natural or Artificial Opening Endoscopic (ICD-10-PCS; CPT 43235; principal; 2018-10-25 07:30)
DX: K25.9 Gastric ulcer, unspecified as acute or chronic, without hemorrhage or perforation (principal); K29.50 Unspecified chronic gastritis without bleeding; Z09 Encounter for follow-up examination after completed treatment for conditions other than malignant neoplasm; Z87.11 Personal history of peptic ulcer disease
CPT/HCPCS: 43239; 88305; NC

== ENCOUNTER → 2018-11-12 13:36 | Outpatient (BNVA) | payer MEDICARE, SELFPAY | PROVIDERS: PCP Family Medicine; Referring Provider Family Medicine; Visit Provider Physical Therapy Assistant | DX: Z48.815 Encounter for surgical aftercare following surgery on the digestive system (principal); K29.70 Gastritis, unspecified, without bleeding | CPT/HCPCS: 99213 ==